=== PATIENT | male | born 1955 | race Caucasian/White ===

== ENCOUNTER → 2017-06-24 | Outpatient (CLI) | payer OTHER, MEDICARE ==
[~2017-06-24] MED LIST: ALBUTEROL17 GM IH; ASPIR 8181 MG PO; B-COMPLEX PO; BOWEL PREP; DIAZIDE PO; ENBREL SQ; FIBER SUPPLEMENT PO; FISH OIL PO; GLUCOSAMINE CH1 EAC2 PO; HYDROCODONE-AP1 EAC1 PO; LISINOPRIL10 MG PO; LYRICA150 MG PO; METFORMIN HCL500 MG PO; METOLAZONE5 MG PO; MIDODRINE HCL2.5 MG PO; MILK THISTLE PO; MOMETASONE FURO15 GM; MORPHINE SULFAT30 M1 PO; NUCYNTA100 MG PO; PLAQUENIL200 MG PO; PRESTIQ PO; PRISTIQ ER50 MG PO; SIMPONI SQ; TIZANIDINE HCL4 MG PO; TRIAMTERENE-HCTZ1 EA PO; VITAMIN D1000 UNI1 PO; XANAX1 MG PO; Z NEURONTIN PO; Z.0.ALDACTONE50 MG PO; Z.0.CLONAZEPAM1 MG PO; Z.0.CYMBALTA60 MG PO; Z.0.LEVOTHYROXINE75 PO; Z.0.MULTIVITAMINS1 E PO; Z.0.OMEPRAZOLE40 MG PO; Z.0.TAMSULOSIN HCL0. PO; Z.0.VITAMIN C500 M1 PO; Z.2.METFORMIN HCL500 PO; [UNRECOGNIZED DRUG - OTHER] IM; [UNRECOGNIZED DRUG - OTHER] INJ; vitamin b12 PO
--- NOTE | 2017-06-24 18:54 | Diagnostic Imaging Report ---
PROCEDURE:C-SPINE COMP. W/FLEX \T\ EXT COMPARISON:None. INDICATIONS:NECK PAIN FINDINGS:The cervical spine is visualized on the lateral view from skull base to C7-T1. No acute, displaced fracture or dislocation. Degenerative changes predominantly at C5-C6 with presence of bridging osteophytes and intervertebral disc space narrowing. Small bridging osteophytes are also noted at C4-C5 and C6-C7. Minimal grade 1 anterolisthesis of C6 on C5, which shows no significant change in flexion and extension views. Minimal grade 1 anterolisthesis of C6 on C7, seen only on flexion view. No lytic or blastic lesions. Bilateral oblique views show no significant neural foraminal narrowing. Postoperative changes with metallic clips in the right neck region, likely from prior endarterectomy. CONCLUSION:No acute abnormalities. Degenerative changes predominantly at C5-C6. Minimal grade 1 anterolisthesis of C6 on C5, which shows no change on flexion and extension views. Minimal grade 1 anterolisthesis of C6 on C7, seen only on flexion view. Arsenio Lindsey M.D. Dictated by: Arsenio Lindsey M.D. on 06/24/2017 at 19:02 Electronically approved by: Arsenio Lindsey M.D. on 06/24/2017 at 19:02
== END ==
LOC: RAD 09:07
PROVIDERS: ATTEND Internal Medicine Rheumatology
DX: M54.2 Cervicalgia (principal)
CPT/HCPCS: 72052

== ENCOUNTER → 2017-07-13 | Outpatient (CLI) | payer OTHER, MEDICARE ==
--- NOTE | 2017-07-13 10:25 | Diagnostic Imaging Report ---
Exam: Cervical spine MRI without IV contrast History: Left arm and hand numbness Comparison studies: None Technique: Sagittal and axial T2, sagittal and axial T1, sagittal STIR and axial T2*GRE Intravenous contrast: None Findings: Alignment: Normal lordosis. No scoliosis. Cervicomedullary junction: No abnormalities. Patent foramen magnum. Soft tissues: No T2 hyperintense inflammatory changes. Spinal cord: Normal in size and signal from the foramen magnum through T1. Vertebrae: No fractures, infection or neoplasm. Degenerative changes: C2-C3: Patent canal and foramina. No disc herniation. Moderate left facet arthrosis. C3-C4: Small central disc protrusion indents the sac without canal stenosis. Uncovertebral and bilateral facet arthrosis result in mild left foraminal stenosis. No significant right foraminal stenosis. C4-C5: Mildly degenerated disc. Disc osteophyte complex indents the thecal sac without significant canal stenosis. Severe left foraminal stenosis due to moderate left uncovertebral and facet arthrosis with likely compression of the left C5 nerve root. Mild right foraminal stenosis due to uncovertebral facet arthrosis. C5-C6: Moderately degenerated disc. Disc osteophyte complex and thickened ligamentum flavum indent the thecal sac and result in mild canal stenosis. Moderate bilateral foraminal stenosis due to uncovertebral facet arthrosis.. C6-C7: Mildly degenerated disc. Disc osteophyte complex indents the thecal sac but does not result in canal stenosis. Mild to moderate foraminal stenosis due to uncovertebral facet arthrosis. C7-T1: Mildly degenerated disc. Disc osteophyte complex indents the thecal sac without significant canal stenosis. Mild left foraminal stenosis due due to facet arthrosis. Patent canal and right foramen. T1-T2: Disc bulge indents the thecal sac without canal or foraminal stenosis. Incidental findings: Small or absent right thyroid lobe. Findings could be related for previous right hemithyroidectomy. IMPRESSION: 1. Multilevel degenerative foraminal stenosis with severe foraminal stenosis on the left at C4-C5 with compression of the left C5 nerve root. Moderate foraminal stenosis on the right at C4-C5 and bilaterally at C5-C6. 2. Moderately degenerated disc with mild canal stenosis at C5-C6. 3. Additional multilevel degenerative changes as described. Signed by: Dr. Eusebio Melo M.D. on 07/13/2017 10:22 AM
== END ==
LOC: MRI 08:43
PROVIDERS: ATTEND Internal Medicine Rheumatology
DX: M50.30 Other cervical disc degeneration, unspecified cervical region (principal); M54.2 Cervicalgia; M05.79 Rheumatoid arthritis with rheumatoid factor of multiple sites without organ or systems involvement
CPT/HCPCS: 72141

== ENCOUNTER → 2017-09-21 | Outpatient (CLI) | payer OTHER, MEDICARE ==
[~2017-09-21] MED LIST changes: +AMBIEN CR12.5 MG PO; +ATIVAN1 MG PO; +BENEFIBER1 EAC1 PO; +CARAFATE1 GM/10 ML PO; +DIATRIZOATE MEGL/DIATRIZOA SOD 30 ML BTL PO ONE; +FLOMAX0.4 MG PO; +GABAPENTIN600 MG PO; +GLUCOSAMINE PO; +IOPAMIDOL 370 MG/ML 200 ML INFUS..BTL INJ ONE; +LEVOTHYROXINE137 MCG PO; +LINZESS PO; +NAPROXEN375 MG PO; +OMEPRAZOLE-BIC1 EAC1 PO; +PREDNISONE10 MG PO; +SODIUM CHLORIDE 0.9% 50ML 50 ML ONE; +VITAMIN B COMP1 EAC1 PO; +XELJANZ PO; +ZOFRAN ODT4 MG PO
--- NOTE | 2017-09-21 12:45 | Diagnostic Imaging Report ---
PROCEDURE: CT ABDOMEN AND PELVIS WITH CONTRAST TECHNIQUE: The abdomen and pelvis were scanned utilizing a multidetector helical scanner from the diaphragm to the lesser trochanter after the IV administration of 100 cc of Isovue 370 and the oral administration of Gastroview. Coronal and sagittal multiplanar reformations were obtained. DLP: 607.4 mGy-cm COMPARISON: Abdominal CT 04/28/2012, abdominal MRI 05/10/2012 INDICATIONS: ABDOMEN PAIN FINDINGS: LOWER THORAX: Normal. HEPATOBILIARY: Nodular contour. No focal hepatic lesions within the limitations of single phase scan. No biliary ductal dilatation. Multiple calcified gallstones. SPLEEN: Slightly enlarged measuring 13 cm in length. PANCREAS: No focal masses or ductal dilatation. ADRENALS: No adrenal nodules. KIDNEYS/URETERS: No hydronephrosis, stones, or definite solid mass lesions. Increased size of a right renal low attenuating lesion from 1.7 cm to 2.5 cm. Lesion currently measures slightly higher than simple fluid density at 24 HU. A 0.6 cm hypodensity in the superior-medial left renal pole is too small to characterize but statistically likely a cyst. PELVIC ORGANS/BLADDER: Unremarkable. PERITONEUM / RETROPERITONEUM: No free air or fluid. LYMPH NODES: No lymphadenopathy. VESSELS: Main portal vein is enlarged measuring 1.9 cm in diameter. Portal, splenic, and superior mesenteric veins are patent. Recanalized umbilical vein. Diffuse vascular calcifications with stenoses of the left external iliac artery and proximal left superficial femoral artery. GI TRACT: No distention or wall thickening. Descending and sigmoid colonic diverticula without evidence of diverticulitis. BONES AND SOFT TISSUES: No vessels seen in the right inguinal canal which may suggest orchiectomy. Degenerative changes of the spine, worse at L5-S1. IMPRESSION: 1. No acute abnormalities in the abdomen and pelvis. 2. Cirrhosis with portal hypertension evidenced by splenomegaly, enlarged portal vein, and recanalized umbilical vein. No ascites. 3. Increased size of a low attenuation lesion in the right kidney which currently measures slightly greater than simple fluid density and may suggest a hemorrhagic or proteinaceous cyst. This can be confirmed with renal ultrasound. Dictated by: Adán Fair M.D. on 09/21/2017 at 12:46 Electronically approved by: Adán Fair M.D. on 09/21/2017 at 12:46
== END ==
LOC: CT 09:31
PROVIDERS: ATTEND Internal Medicine Gastroenterology
DX: R10.9 Unspecified abdominal pain (principal)
CPT/HCPCS: 74177; Q9967

== ENCOUNTER → 2017-10-03 | Day surgery (SDC) | payer OTHER, MEDICARE ==
[~2017-10-03] MED LIST changes: -DIATRIZOATE MEGL/DIATRIZOA SOD 30 ML BTL PO ONE; -IOPAMIDOL 370 MG/ML 200 ML INFUS..BTL INJ ONE; +LIDOCAINE HCL 2% LOCAL INJ 5 ML SDV VIAL INJ ONE; +MIDAZOLAM HCL 2 MG/2 ML VIAL ONE; +PROPOFOL IV EMULSION 10 MG/ML 50 ML VIAL ONE; -SODIUM CHLORIDE 0.9% 50ML 50 ML ONE
--- OUTSIDE RECORDS SUMMARY | 2017-10-03 07:37 | XMS REPORT ---
Author Author [facility] Address Unknown Phone Unavailable Care Team Providers Care Elevator Erector Name Role Phone YENI SALGADO Unavailable Unavailable SIMRAN WILDER Unavailable Unavailable Problems This patient has no known problems. Allergies, Adverse Reactions, Alerts This patient has no known allergies or adverse reactions. Medications This patient has no known medications. Results Test Description Test Time Test Comments Text Results Atomic Results Result Comments CT ABDOMEN/PELVIS W [place] [address] Patient Name: NASIMA SCHAFFER MR #: [id number] : 1955 Age/Sex: 62/M Req #: [id number] Adm Physician: Ordered by: YENI SALGADO MD Report #: [id number] Location: CT Room/Bed: Procedure: [id number] CT/CT ABDOMEN/PELVIS W Exam Date: 09/21/17 Exam Time: 1100 REPORT STATUS: Signed PROCEDURE: CT ABDOMEN AND PELVIS WITH CONTRAST TECHNIQUE: The abdomen and pelvis were scanned utilizing a multidetector helical scanner from the diaphragm to the lesser trochanter after the IV administration of 100 cc of Isovue 370 and the oral administration of Gastroview. Coronal and sagittal multiplanar reformations were obtained. DLP: 607.4 mGy-cm COMPARISON: Abdominal CT 04/28/2012, abdominal MRI 05/10/2012 INDICATIONS: ABDOMEN PAIN FINDINGS: LOWER THORAX: Normal. HEPATOBILIARY: Nodular contour. No focal hepatic lesions within the limitations of single phase scan. No biliary ductal dilatation. Multiple calcified gallstones. SPLEEN: Slightly enlarged measuring 13 cm in length. PANCREAS: No focal masses or ductal dilatation. ADRENALS: No adrenal nodules. KIDNEYS/URETERS: No hydronephrosis, stones, or definite solid mass lesions. Increased size of a right renal low attenuating lesion from 1.7 cm to 2.5 cm. Lesion currently measures slightly higher than simple fluid density at 24 HU. A 0.6 cm hypodensity in the superior-medial left renal pole is too small to characterize but statistically likely a cyst. PELVIC ORGANS/BLADDER: Unremarkable. PERITONEUM / RETROPERITONEUM: No free air or fluid. LYMPH NODES: No lymphadenopathy. VESSELS: Main portal vein is enlarged measuring 1.9 cm in diameter. Portal, splenic, and superior mesenteric veins are patent. Recanalized umbilical vein. Diffuse vascular calcifications with stenoses of the left external iliac artery and proximal left superficial femoral artery. GI TRACT: No distention or wall thickening. Descending and sigmoid colonic diverticula without evidence of diverticulitis. BONES AND SOFT TISSUES: No vessels seen in the right inguinal canal which may suggest orchiectomy. Degenerative changes of the spine, worse at L5-S1. IMPRESSION: 1. No acute abnormalities in the abdomen and pelvis. 2. Cirrhosis with portal hypertension evidenced by splenomegaly, enlarged portal vein, and recanalized umbilical vein. No ascites. 3. Increased size of a low attenuation lesion in the right kidney which currently measures slightly greater than simple fluid density and may suggest a hemorrhagic or proteinaceous cyst. This can be confirmed with renal ultrasound. Dictated by: Adán Aguirre M.D. on 09/21/2017 at 12:46 Electronically approved by: Adán Aguirre M.D. on 09/21/2017 at 12:46 Dictated By: ADÁN AGUIRRE MD 1246 Transcribed By: GERRY on 09/21/17 1246 COPY TO: YENI SALGADO MD MRI SPINE CERVICAL WO [place] [address] Patient Name: NASIMA SCHAFFER MR #: [id number] : 1955 Age/Sex: 62/M [facility] #: [id number] Req #: [id number] [facility] [place] Physician: Ordered by: SIMRAN WILDER Report #: [id number] Location: MRI Room/Bed: Procedure: [id number] MRI/MRI SPINE CERVICAL WO Exam Date: Exam Time: REPORT STATUS: Signed Exam: Cervical spine MRI without IV contrast History: Left arm and hand numbness Comparison studies: None Technique: Sagittal and axial T2, sagittal and axial T1, sagittal STIR and axial T2*GRE Intravenous contrast: None Findings: Alignment: Normal lordosis. No scoliosis. Cervicomedullary junction: No abnormalities. Patent foramen magnum. Soft tissues: No T2 hyperintense inflammatory changes. Spinal cord: Normal in size and signal from the foramen magnum through T1. Vertebrae: No fractures, infection or neoplasm. Degenerative changes: C2-C3: Patent canal and foramina. No disc herniation. Moderate left facet arthrosis. C3-C4: Small central disc protrusion indents the sac without canal stenosis. Uncovertebral and bilateral facet arthrosis result in mild left foraminal stenosis. No significant right foraminal stenosis. C4-C5: Mildly degenerated disc. Disc osteophyte complex indents the thecal sac without significant canal stenosis. Severe left foraminal stenosis due to moderate left uncovertebral and facet arthrosis with likely compression of the left C5 nerve root. Mild right foraminal stenosis due to uncovertebral facet arthrosis. C5-C6: Moderately degenerated disc. Disc osteophyte complex and thickened ligamentum flavum indent the thecal sac and result in mild canal stenosis. Moderate bilateral foraminal stenosis due to uncovertebral facet arthrosis.. C6-C7: Mildly degenerated disc. Disc osteophyte complex indents the thecal sac but does not result in canal stenosis. Mild to moderate foraminal stenosis due to uncovertebral facet arthrosis. C7-T1: Mildly degenerated disc. Disc osteophyte complex indents the thecal sac without significant canal stenosis. Mild left foraminal stenosis due due to facet arthrosis. Patent canal and right foramen. T1-T2: Disc bulge indents the thecal sac without canal or foraminal stenosis. Incidental findings: Small or absent right thyroid lobe. Findings could be related for previous right hemithyroidectomy. IMPRESSION: 1. Multilevel degenerative foraminal stenosis with severe foraminal stenosis on the left at C4-C5 with compression of the left C5 nerve root. Moderate foraminal stenosis on the right at C4-C5 and bilaterally at C5- C6. 2. Moderately degenerated disc with mild canal stenosis at C5-C6. 3. Additional multilevel degenerative changes as described. Signed by: Dr. Reji Melo M.D. on 07/13/2017 10:22 AM Dictated By: REJI MELO MD 1022 Transcribed By: ALLYSON on 07/13/17 1022 COPY TO: SIMRAN WILDER C-SPINE COMP. W/FLEX EXT [place] [address] Patient Name: NASIMA SCHAFFER MR #: [id number] : 1955 Age/Sex: 62/M Req #: [id number] Adm Physician: Ordered by: SIMRAN WILDER Report #: [id number] Location: [facility] Room/Bed: Procedure: [id number] DX/C-SPINE COMP. W/FLEX EXT Exam Date: 06/24/17 Exam Time: 926 REPORT STATUS: Signed PROCEDURE: C-SPINE COMP. W/FLEX T EXT COMPARISON: None. INDICATIONS: NECK PAIN FINDINGS: The cervical spine is visualized on the lateral view from skull base to C7-T1. No acute, displaced fracture or dislocation. Degenerative changes predominantly at C5-C6 with presence of bridging osteophytes and intervertebral disc space narrowing. Small bridging osteophytes are also noted at C4-C5 and C6-C7. Minimal grade 1 anterolisthesis of C6 on C5, which shows no significant change in flexion and extension views. Minimal grade 1 anterolisthesis of C6 on C7, seen only on flexion view. No lytic or blastic lesions. Bilateral oblique views show no significant neural foraminal narrowing. Postoperative changes with metallic clips in the right neck region, likely from prior endarterectomy. CONCLUSION: No acute abnormalities. Degenerative changes predominantly at C5-C6. Minimal grade 1 anterolisthesis of C6 on C5, which shows no change on flexion and extension views. Minimal grade 1 anterolisthesis of C6 on C7 , seen only on flexion view. Radames Lindsey M.D. Dictated by: Radames Lindsey M.D. on 06/24/2017 at 19:02 Electronically approved by: Radames Lindsey M.D. on 06/24/2017 at 19:02 Dictated By: RADAMES LINDSEY MD 01 Transcribed By: GERRY on 06/24/171901 COPY TO: SIMRAN WILDER
--- NOTE | 2017-10-03 09:54 | Operative Report ---
DATE OF PROCEDURE: October 03, 2017 REFERRING PHYSICIAN: Dr. Christel Mills PROCEDURES PERFORMED 1. Esophagogastroduodenoscopy with biopsies. 2. Colonoscopy with polypectomy. INDICATIONS FOR EGD: Nausea, vomiting, history of melena. INDICATIONS FOR COLONOSCOPY: Colorectal cancer screening, personal history of colon polyps. MEDICATION: Patient was done under MAC. Please see anesthesiologist's note. PROCEDURE: With the patient in the left lateral decubitus position, the flexible fiberoptic Olympus gastroscope was introduced into the esophagus under direct visualization without any difficulty. There was some patchy erythema noted in the distal esophagus. The scope was then advanced with ease into the stomach, and mucosa overlying the antrum revealed some patchy intense erythema and moderate edema, and biopsies were obtained and sent to stain for H. pylori. There was some extrinsic compression noted in the distal body along the anterior wall with normal overlying mucosa. The pylorus was of normal contour and shape. It was intubated with ease. The scope was advanced all the way to the 2nd portion of the duodenum. The scope was then withdrawn slowly. Mucosa overlying the proximal 2nd portion appeared to be within normal limits. A minute nodule was noted in the duodenal bulb along the anterior wall and that was biopsied. The scope was then withdrawn back into the stomach and retroflexed. The mucosa overlying the fundus and the cardia appeared to be within normal limits. The scope was then straightened out. The stomach was decompressed. The scope was subsequently withdrawn. Patient tolerated the procedure well. IMPRESSION 1. Distal esophagitis. 2. Gastritis, biopsied. Biopsies sent to stain for Helicobacter pylori. 3. Duodenal bulb nodule, minute, anterior wall, biopsied. PLAN: Follow up histology. Initiate Protonix 40 mg 1 p.o. q.a.m. a.c. Patient was then turned around. After adequate lubrication of the anal canal, a flexible fiberoptic Olympus colonoscope was inserted into the rectum with ease and advanced all the way to the cecum. There was some retained solid debris in the cecum precluding adequate visualization of the cecal pouch. An approximately 1 cm sessile polyp was noted in the cecum that was removed per snare electrocautery. Polypectomy site was hemoclipped. The scope was then withdrawn slowly. Mucosa overlying the ascending colon appeared to be within normal limits. One polyp was snared from the transverse colon. Diverticular disease was noted to involve the descending and the sigmoid. One polyp was noted in the sigmoid that was hot biopsied. The rectum appeared to be within normal limits. The scope was then retroflexed into the distal rectum. Small internal hemorrhoids were noted, none of which was actively bleeding. The scope was then straightened out. The rectosigmoid area, as well as the distal rectal area were decompressed. The scope was subsequently withdrawn. Patient tolerated the procedure well. IMPRESSION 1. Retained solid debris in the cecum. 2. Cecal polyps, snared. 3. Transverse colon polyps, snared. 4. Diverticulosis. 5. Sigmoid colon polyp, hot biopsied. 6. Internal hemorrhoids, none actively bleeding. PLAN: Follow up histology. Initiate high-fiber and low-fat diet. Initiate high-fiber supplement. Start VSL #3 DS one p.o. daily. The patient will need a followup colonoscopy in 3 years. Job#: [id number] RI cc:CHRISTEL MILLS MD
== END | disposition home or self-care (01) ==
LOC: OR 07:34
PROVIDERS: ATTEND Internal Medicine Gastroenterology
DX: Z12.11 Encounter for screening for malignant neoplasm of colon (principal); D12.0 Benign neoplasm of cecum; K29.70 Gastritis, unspecified, without bleeding; K31.89 Other diseases of stomach and duodenum; K57.30 Diverticulosis of large intestine without perforation or abscess without bleeding; K63.89 Other specified diseases of intestine; K20.9 Esophagitis, unspecified; K64.8 Other hemorrhoids; K59.00 Constipation, unspecified; K74.60 Unspecified cirrhosis of liver; R63.4 Abnormal weight loss; I45.10 Unspecified right bundle-branch block; M06.9 Rheumatoid arthritis, unspecified; M54.10 Radiculopathy, site unspecified; E03.9 Hypothyroidism, unspecified; E11.9 Type 2 diabetes mellitus without complications; R53.83 Other fatigue; Z01.810 Encounter for preprocedural cardiovascular examination; Z79.82 Long term (current) use of aspirin; Z83.71 Family history of colonic polyps
CPT/HCPCS: 36415; 43239; 45384; 45385; 82948; 93005; J2001; J2250; 45378

== ENCOUNTER → 2018-01-30 | Outpatient (CLI) | payer OTHER, MEDICARE ==
[~2018-01-30] MED LIST changes: -LIDOCAINE HCL 2% LOCAL INJ 5 ML SDV VIAL INJ ONE; -MIDAZOLAM HCL 2 MG/2 ML VIAL ONE; -PROPOFOL IV EMULSION 10 MG/ML 50 ML VIAL ONE
--- NOTE | 2018-01-30 10:31 | Diagnostic Imaging Report ---
EXAMINATION: Head CT without contrast HISTORY: Left-sided weakness COMPARISON: Brain MRI 01/28/2012 TECHNIQUE: Multidetector axial images were obtained without contrast from the foramen magnum to the vertex . The images were reconstructed using brain and bone algorithms. Thin section brain images were reformatted into coronal and sagittal planes. Image quality: Motion/streaking artifact limits the evaluation of the skull base and posterior cranial fossa. Dose modulation, iterative reconstruction, and/or weight based adjustment of the mA/kV was utilized to reduce the radiation dose to as low as reasonably achievable FINDINGS: Parenchyma: 1. Few scattered a mildly confluent periventricular and parisi radiata white matter hypodensities, most likely nonspecific chronic microvascular ischemic changes. 2. No mass or hemorrhage. No CT evidence of acute territorial vascular insult. Extra-axial spaces:No abnormal density. No extra-axial fluid collections Brain volume: Normal for age. Ventricles: No hydrocephalus or displacement. Arteries: No density suggestive of thrombus. Dural sinuses: No abnormal density. Extra-axial spaces: No abnormal density. Foramen magnum: No mass, Chiari malformation, or basilar invagination. Sella: No obvious mass. Paranasal/mastoid sinuses: Imaged portions unremarkable. Skull/Scalp: No lytic or blastic lesions. No fractures. IMPRESSION: 1. No acute intracranial hemorrhage or CT evidence of acute territorial cortical infarct. 2. Mild chronic microvascular ischemic changes. Signed by: Dr. Alisha Castañeda M.D. on 01/30/2018 10:27 AM
== END ==
LOC: CT 08:36
DX: R53.1 Weakness (principal)
CPT/HCPCS: 70450

== ENCOUNTER → 2018-03-07 | Day surgery (SDC) | payer OTHER, MEDICARE ==
[~2018-03-07] MED LIST changes: +PROPOFOL IV EMULSION 10 MG/ML 20 ML VIAL ONE; +ZANTAC 7575 MG PO
[2018-03-07 15:22] VITALS: BP 138/79
== END | disposition home or self-care (01) ==
LOC: OR 12:09
PROVIDERS: ATTEND Internal Medicine Gastroenterology
DX: K74.60 Unspecified cirrhosis of liver (principal); K29.70 Gastritis, unspecified, without bleeding; K44.9 Diaphragmatic hernia without obstruction or gangrene; K76.6 Portal hypertension; K21.9 Gastro-esophageal reflux disease without esophagitis; K31.89 Other diseases of stomach and duodenum; K59.00 Constipation, unspecified; K58.9 Irritable bowel syndrome, unspecified; Z71.3 Dietary counseling and surveillance; E66.3 Overweight; I25.10 Atherosclerotic heart disease of native coronary artery without angina pectoris; I45.10 Unspecified right bundle-branch block; I10 Essential (primary) hypertension; F41.9 Anxiety disorder, unspecified; Z79.82 Long term (current) use of aspirin; Z68.26 Body mass index [BMI] 26.0-26.9, adult; Z87.891 Personal history of nicotine dependence; Z86.73 Personal history of transient ischemic attack (TIA), and cerebral infarction without residual deficits
CPT/HCPCS: 43239; 93005

== ENCOUNTER 2018-11-07 13:23 | Emergency (ER) | payer MEDICARE, OTHER ==
[~2018-11-07] VITALS: Ht 185.4 cm; Wt 102.1 kg
[~2018-11-07 13:23] MED LIST changes: -PROPOFOL IV EMULSION 10 MG/ML 20 ML VIAL ONE
--- OUTSIDE RECORDS SUMMARY | 2018-11-07 13:28 | XMS REPORT | Clinical Summary ---
Author Author [facility] [employer] [facility] Address Unknown Phone Unavailable Care Team Providers Care Professional Athletes Coach Name Role Phone PCP Unavailable Allergies Comments Active Allergy Reactions Severity Noted Date Dizziness. Adalimumab Other (See 01/18/2018 Comments) Medications End Date Status Medication Sig Dispensed Refills Start Date Active aspirin 81 MG EC tablet Take 81 mg by 0 mouth daily. Active LORazepam (ATIVAN) 1 MG Take 1 mg by 0 tablet mouth as needed for Anxiety. Active wheat dextrin (BENEFIBER Take 1 tablet 0 HEALTHY SHAPE ORAL) by mouth daily. Active levothyroxine (SYNTHROID, Take 137 mcg 0 LEVOTHROID) 137 MCG by mouth tablet Every morning on an empty stomach. Active morphine (MS CONTIN) 30 Take 30 mg by 0 MG 12 hr tablet mouth 2 (two) times daily. Active naproxen (NAPROSYN) 375 Take 375 mg 0 MG tablet by mouth 2 (two) times daily with breakfast and dinner. Active hydroxychloroquine Take by mouth 0 (PLAQUENIL) 200 mg tablet 2 (two) times daily. Active predniSONE (DELTASONE) 10 Take 20 mg by 0 MG tablet mouth daily. Active desvenlafaxine succinate Take 50 mg by 0 (PRISTIQ) 50 MG 24 hr mouth daily. tablet Active tamsulosin (FLOMAX) 0.4 Take 0.4 mg 0 mg Cap 24 hr capsule by mouth daily. Active TiZANidine (ZANAFLEX) 4 Take 4 mg by 0 MG capsule mouth 3 (three) times daily. Active zolpidem (AMBIEN CR) 12.5 Take 12.5 mg 0 MG CR tablet by mouth every night as needed for Insomnia. Active clopidogrel (PLAVIX) 75 Take 75 mg by 0 mg tablet mouth daily. Active ranitidine (ZANTAC) 150 Take 150 mg 0 MG tablet by mouth 2 (two) times daily. Active tofacitinib (XELJANZ XR) Take 11 mg by 0 11 mg Tb24 mouth daily. Active linaclotide (LINZESS) 72 Take 72 mcg 0 mcg Cap by mouth daily. Active acetaminophen (TYLENOL) Take 2 0 325 MG tablet tablets (650 8 mg total) by mouth every 6 (six) hours as needed for Pain. Active Problems Problem Noted Date Carotid artery disorder 01/20/2018 Encounters Care Team Description Date Type Specialty Daxa Hawkins MD CAROTID ANGIOGRAMS 01/20/2018 Surgery Daxa Hawkins MD 01/20/2018 Hospital Cardiac Intensive Care - Encounter 01/21/2018 Daxa Hawkins MD 01/18/2018 Hospital Encounter 01/18/2018 Orders Only General Internal Medicine after 11/06/2017 Social History Date Tobacco Use Types Packs/Day Years Used Former Smoker Smokeless Tobacco: Never Used Comments: quit in 2004. Alcohol Use Drinks/Week oz/Week Comments No Sex Assigned at Date Recorded Not on file Industry Job Start Date Occupation Not on file Not on file Not on file Travel End Travel History Travel Start No recent travel history available. Last Filed Vital Signs Time Taken Vital Sign Reading 01/21/2018 11:58 AM CDT Blood Pressure 136/73 01/21/2018 11:58 AM CDT Pulse 66 01/21/2018 8:00 AM CDT Temperature 36.5 C (97.7 F) 01/21/2018 11:58 AM CDT Respiratory Rate 18 01/21/2018 11:58 AM CDT Oxygen Saturation 100% - Inhaled Oxygen - Concentration 01/20/2018 11:11 AM CDT Weight 88 kg (194 lb) 01/20/2018 11:11 AM CDT Height 185.4 cm (6' 1") 01/20/2018 11:11 AM CDT Body Mass Index 25.6 Plan of Treatment Not on file Implants Device Identifier Shelf Expiration Date Model / Serial / Lot Implanted Type Area Manufactur er 08/10/2020 [id number] / / [id number] Xact Carotid Stent System Cardiovasc Right: Carotid PITTMAN Implanted: Qty: 1 on 01/20/2018 by pramod Benoit VASCULAR Daxa Hawkins MD DEVICE 09/10/2018 [id number] / / [id number] Device Clsr Angio-Seal Vip 6fr Cardiovasc Right: Leg [facility] GI[facility] [id number] - [id number] pramod MED:CARDIA Implanted: Qty: 1 on 01/20/2018 by Daxa Rowell MD Procedures Comments Procedure Name Priority Date/Time Associated Diagnosis CARDIAC CATH REPORT - 01/24/2018 SCAN 9:11 AM CDT RHYTHM STRIP - SCAN 01/24/2018 9:11 AM CDT CBC W/PLT COUNT & AUTO Routine 01/21/2018 DIFFERENTIAL 3:55 AM CDT BASIC METABOLIC PANEL (7) Routine 01/21/2018 3:55 AM CDT CBC W/PLT COUNT & AUTO Routine 01/21/2018 DIFFERENTIAL 3:55 AM CDT POCT-ACT Routine 01/20/2018 8:30 AM CDT CAROTID ANGIOGRAMS 01/20/2018 Stenosis of right carotid 7:35 AM CDT artery Case Notes 1CASE POP6 RIGHT CAROTID ANGIOGRAM W/CAROTID STENTING Special Needs REQ 7:30AM TRANSFUSION SERVICE 01/19/2018 REPORT - SCAN 6:01 PM CDT CBC W/PLT COUNT & AUTO Routine 01/18/2018 DIFFERENTIAL 1:39 PM CDT TYPE AND SCREEN, Routine 01/18/2018 AUTOMATED 1:39 PM CDT CBC W/PLT COUNT & AUTO Routine 01/18/2018 DIFFERENTIAL 1:39 PM CDT BASIC METABOLIC PANEL (7) Routine 01/18/2018 1:39 PM CDT ECG 12-LEAD Routine 01/18/2018 1:15 PM CDT ECG 12-LEAD Routine 01/18/2018 1:15 PM CDT Procedure Note - Interface, External Ris In - 01/18/2018 2:06 PM CDT Ventricula r Rate 79 BPM Atrial Rate 79 BPM P-R Interval 160 ms QRS Duration 132 ms Q-T Interval 396 ms QTC Calculatio n(Bazett) 454 ms P [place] 65 degrees R [place] -76 degrees T [place] 55 degrees Normal sinus rhythm Right bundle branch block Left anterior fascicular block Bifascicul ar block Abnormal ECG No previous ECGs available after 11/06/2017 Results * CARDIAC CATH REPORT - SCAN (01/24/2018 9:11 AM CDT) Narrative Performed At * RHYTHM STRIP - SCAN (01/24/2018 9:11 AM CDT) Narrative Performed At * CBC with platelet count + automated diff (01/21/2018 3:55 AM CDT) Only the most recent of 2 results within the time period is included. WBC 7.2 3.5 - 10.5 K/L [facility] RBC 3.66 (L) 4.63 - 6.08 M/L [facility] Hemoglobin 11.9 (L) 13.7 - 17.5 GM/DL [facility] Hematocrit 35.5 (L) 40.1 - 51.0 % [facility] MCV 97.0 (H) 79.0 - 92.2 fL [facility] MCH 32.5 (H) 25.7 - 32.2 pg [facility] MCHC 33.5 32.3 - 36.5 GM/DL [facility] RDW 14.5 (H) 11.6 - 14.4 % [facility] Platelets 155 150 - 450 K/CU MM [facility] MPV 9.2 (L) 9.4 - 12.4 fL [facility] nRBC 0 0 - 0 /100 WBC [facility] % Neutros 67 % [facility] % Lymphs 20 % [facility] % Monos 10 % [facility] % Eos 1 % [facility] % Baso 1 % [facility] # Neutros 4.86 1.78 - 5.38 K/L [facility] # Lymphs 1.40 1.32 - 3.57 K/L [facility] # Monos 0.73 0.30 - 0.82 K/L [facility] # Eos 0.07 0.04 - 0.54 K/L [facility] # Baso 0.04 0.01 - 0.08 K/L [facility] Immature 1 0 - 1 % [facility] Granulocytes-Relative [facility] Specimen Blood Performing Organization Address City/State/Zipcode Phone Number [address] [address] [facility] * Basic Metabolic Panel (01/21/2018 3:55 AM CDT) Only the most recent of 2 results within the time period is included. Sodium 140 136 - 145 meq/L [facility] Potassium 4.0 3.5 - 5.1 meq/L [facility] Chloride 106 98 - 107 meq/L [facility] CO2 26 22 - 29 meq/L [facility] BUN 19 7 - 21 mg/dL [facility] Creatinine 0.95 0.57 - 1.25 mg/dL [facility] Glucose 93 70 - 105 mg/dL [facility] Calcium 9.0 8.4 - 10.2 mg/dL [facility] EGFR 80Comment: ESTIMATED GFR IS mL/min/1.73 sq m [facility] NOT ACCURATE CREATININE [facility] CLEARANCE IN PREDICTING GLOMERULAR FILTRATION RATE. ESTIMATED GFR IS NOT APPLICABLE FOR DIALYSIS PATIENTS. Specimen Blood Performing Organization Address City/State/Zipcode Phone Number [address] [address] [facility] * POC ACTIVATED CLOTTING TIME (01/20/2018 8:30 AM CDT) Activated Clotting Time 274Comment: TESTED AT [facility] [address] Specimen Blood Performing Organization Address City/[facility]/Zipcode Phone Number [address] * TRANSFUSION SERVICE REPORT - SCAN (01/19/2018 6:01 PM CDT) Narrative Performed At * Type and screen, automated (01/18/2018 1:39 PM CDT) ABO/RH AUTOMATED (BEAKER) O POSITIVE [facility] Ab Scrn NEGATIVE [facility] Specimen Blood Performing Organization Address [facility] Phone Number [address] * ECG 12 lead (01/18/2018 1:15 PM CDT) Specimen Narrative Performed At Ventricular Rate 79 BPM GE MUSE Atrial Rate 79 BPM P-R Interval 160 ms QRS Duration 132 ms Q-T Interval 396 ms QTC Calculation(Bazett) 454 ms P [place] 65 degrees R [place] -76 degrees T [place] 55 degrees Normal sinus rhythm Right bundle branch block Left anterior fascicular block Bifascicular block Abnormal ECG No previous ECGs available Confirmed by Rancho HAYNES, LESTER ([id number]) on 01/19/2018 6:51:25 AM Procedure Note Interface, External Ris In - 01/19/2018 6:51 AM CDT Ventricular Rate 79 BPM Atrial Rate 79 BPM P-R Interval 160 ms QRS Duration 132 ms Q-T Interval 396 ms QTC Calculation(Bazett) 454 ms P [place] 65 degrees R [place] -76 degrees T [place] 55 degrees Normal sinus rhythm Right bundle branch block Left anterior fascicular block Bifascicular block Abnormal ECG No previous ECGs available Confirmed by Rancho HAYNES BASANT ([id number]) on 01/19/2018 6:51:25 AM Performing Organization Address City/State/Zipcode Phone Number GE MUSE after 11/06/2017 Insurance Payer Benefit Subscriber ID Type Phone Address Plan / Group MEDICARE MEDICARE A xxxxxxxxxx Medicare B [facility] HMO/POS CARE POS SELECT CHOICE Advance Directives For more information, please contact: [facility] [address] [place] [id number] Date Inactivated Comments Code Status Date Activated 01/21/2018 2:54 PM Full Code 01/20/2018 5:52 AM This code status was determined by: Patient
--- OUTSIDE RECORDS SUMMARY | 2018-11-07 13:29 | XMS REPORT | Summary of Care ---
Author Author [facility] Organization [facility] Address Unknown Phone Unavailable Encounter SANTIAGO Limon(FIN) [id number] Date(s): 10/28/18 - 10/28/18 [facility] [address] [place] [address]- Discharge Disposition: Home or Self Care Attending Physician: Robin Calderon MD Referring Physician: Robin Calderon MD Vital Signs No data available for this section Problem List Condition Effective Dates Status Health Status Informant Anxiety(Confirmed) Active History of Oral Resolved Cancer(Confirmed) Chronic pain Active syndrome(Confirmed) Cirrhosis of Active liver(Confirmed) ONEIDA (hard of Active hearing)(Confirmed) Hypothyroidism(Confi Active rmed) Neuropathy(Confirmed Active )1 Rheumatoid Active arthritis(Confirmed) 1bilateral feet and legs Allergies, Adverse Reactions, Alerts Substance Reaction Severity Status Humira Active Medications No data available for this section Results No data available for this section Immunizations No data available for this section Procedures Procedure Date Related Diagnosis Body Site Status Colonoscopy Completed Enteral tube feeding1 Completed Hemorrhoidectomy2 Completed Laminectomy Completed Ligament repair3 Completed Operation4 Completed Operation5 Completed 1Insertion 2006 220 years ago [address] 4Removed right jaw due to oral cancer 5Dental Implant Surgery 2007 Social History Social History Type Response Alcohol Past, Previous treatment: None. Alcohol use interferes with work or home: No. Smoking Status Former smoker; Type: Cigarettes; Exposure to Tobacco Smoke None; Cigarette Smoking Last 365 Days No; Reg Smoking Cessation Counseling No; Number of years: 30; entered on: 10/17/18 Assessment and Plan No data available for this section
--- OUTSIDE RECORDS SUMMARY | 2018-11-07 13:29 | XMS REPORT | Summary of Care ---
Author Author [facility] Organization [facility] Address Unknown Phone Unavailable Encounter SANTIAGO Limon(FAITH) [id number] Date(s): 03/21/15 - 03/21/15 [facility] [address] [place] [address]- [phone] Discharge Disposition: Home Attending Physician: Zhao Goodwin MD Referring Physician: Zhao Goodwin MD Vital Signs 1 2 3 Most recent to oldest [Reference Range]: 182.88 cm (03/14/15 11:03 AM) Height 1 2 3 Most recent to oldest [Reference Range]: 97.9 DegF (03/14/15 11:03 AM) Temperature Oral [96.4-99.1 DegF] 1 2 3 Most recent to oldest [Reference Range]: 154/59 mmHg *HI* (03/21/15 2:30 PM) 148/94 mmHg *HI* (03/21/15 2:15 PM) 167/79 mmHg *HI* (03/21/15 2:00 PM) Blood Pressure [90-140/60-90 mmHg] 1 2 3 Most recent to oldest [Reference Range]: 12 BRMIN *LOW* (03/21/15 2:15 PM) 18 BRMIN (03/21/15 2:00 PM) 12 BRMIN *LOW* (03/21/15 1:45 PM) Respiratory Rate [14-20 BRMIN] 1 2 3 Most recent to oldest [Reference Range]: 55 bpm *LOW* (03/21/15 10:00 AM) 59 bpm *LOW* (03/14/15 11:03 AM) Peripheral Pulse Rate [60-100 bpm] 1 2 3 Most recent to oldest [Reference Range]: 123.75 kg (03/14/15 11:03 AM) Weight 1 2 3 Most recent to oldest [Reference Range]: 37 m2 (03/14/15 11:03 AM) Body Mass Index Problem List Condition Effective Dates Status Health Status Informant Anxiety(Confirmed) Active History of Oral Resolved Cancer(Confirmed) Chronic pain Active syndrome(Confirmed) Cirrhosis of Active liver(Confirmed) YOMBA SHOSHONE (hard of Active hearing)(Confirmed) Hypothyroidism(Confi Active rmed) Neuropathy(Confirmed Active )1 Rheumatoid Active arthritis(Confirmed) 1bilateral feet and legs Allergies, Adverse Reactions, Alerts Substance Reaction Severity Status Humira Active Medications acetaminophen 1,000 mg, Route: IVPB, Drug form: INJ, ONCE, Dosing Weight 123.75, kg, PRN Pain Score 1-3, Start date: 03/21/15 13:53:00, Duration: 1 doses or times, Stop date: Limited # of times Start Date: 03/21/15 Stop Date: 03/21/15 Status: Discontinued aspirin 81 mg tablet, enteric coated 81 mg=1 tab, PO, Daily, # 90 tab, 3 Refill(s) Start Date: 03/14/15 Status: Ordered B Complex B Complex, 1 tab, PO, Daily, Refill(s) 0 Start Date: 03/14/15 Status: Ordered Benefiber Benefiber, PO, Refill(s) 0 Start Date: 03/14/15 Status: Ordered ceFAZolin (SCIP) 2 gm, Route: IVPB, Drug form: INJ, ONCE, Dosing Weight 123.75, kg, Start date: 1 10:31:00, Stop date: 03/21/15 10:31:00 Start Date: 03/21/15 Stop Date: 03/21/15 Status: Completed clobetasol topical 0.05% cream 1 appl, TOP, PRN, 0 Refill(s) Start Date: 03/14/15 Status: Ordered desvenlafaxine 50 mg oral tablet, extended release 50 mg=1 tab, PO, Daily, # 30 tab, 0 Refill(s) Start Date: 03/14/15 Status: Ordered fentaNYL 50 microgram, Route: IVP, Q5Min, Dosing Weight 123.75, kg, PRN Pain Score 7-10, Start date: 03/21/15 13:53:00, Duration: 2 doses or times, Stop date: Limited # of times Start Date: 03/21/15 Stop Date: 03/21/15 Status: Completed Flomax 0.4 mg oral capsule 0.4 mg=1 cap, PO, Daily, # 90 cap, 0 Refill(s) Start Date: 03/14/15 Status: Ordered flumazenil 0.2 mg, Route: IVP, PRN, Dosing Weight 123.75, kg, PRN Benzodiazepine Reversal, Initial dose, Start date: 03/21/15 13:53:00, Duration: 30 day, Stop date: 12:52:00 Start Date: 03/21/15 Stop Date: 03/21/15 Status: Discontinued glucosamine =1 tab, PO, TID, 0 Refill(s) Start Date: 03/14/15 Status: Ordered hydromorphone 0.5 mg, Route: IVP, Q5Min, Dosing Weight 123.75, kg, PRN Pain Score 7-10, Start date: 03/21/15 13:53:00, Duration: 4 doses or times, Stop date: Limited # of teresa es Start Date: 03/21/15 Stop Date: 03/21/15 Status: Discontinued Lactated Ringers Injection IV 1000 mL 1,000 mL, Rate: 25 ml/hr, Infuse over: 40 hr, Route: IV, Dosing Weight 123.75 kg , Total Volume: 1,000, Start date: 03/21/15 10:37:00, Duration: 30 day, Stop kingsley e: 04/20/15 10:36:00 Start Date: 03/21/15 Stop Date: 03/21/15 Status: Discontinued levothyroxine 100 mcg (0.1 mg) oral tablet 100 microgram=1 tab, PO, Daily, # 30 tab, 0 Refill(s) Start Date: 03/14/15 Status: Ordered Lyrica 150 mg oral capsule 150 mg=1 cap, PO, BID, # 60 cap, 1 Refill(s) Start Date: 03/14/15 Status: Ordered meperidine 12.5 mg, Route: IVP, Q30Min, Dosing Weight 123.75, kg, PRN Other -See Comment, F or shivering, Start date: 03/21/15 13:53:00, Duration: 2 doses or times, Stop da te: Limited # of times Start Date: 03/21/15 Stop Date: 03/21/15 Status: Discontinued metFORMIN 500 mg, PO, Daily, 0 Refill(s) Start Date: 03/14/15 Status: Ordered Methylpredisone Methylpredisone, 0.4 mg=, Daily, Refill(s) 0 Start Date: 03/14/15 Status: Ordered midodrine 5 mg oral tablet 5 mg=1 tab, PO, TID, # 90 tab, 3 Refill(s) Start Date: 03/14/15 Status: Ordered milk thistle oral tablet 1 tab, PO, TID, 0 Refill(s) Start Date: 03/14/15 Status: Ordered morphine 30 mg oral tablet 30 mg=1 tab, PO, Q4H, PRN Pain, 0 Refill(s) Start Date: 03/14/15 Stop Date: 03/21/15 Status: Ordered morphine Sulfate 2 mg, Route: IVP, Q3H, Dosing Weight 123.75, kg, PRN Pain Score 1-3, Start date: 03/21/15 13:43:00, Duration: 30 day, Stop date: 04/20/15 13:42:00 Start Date: 03/21/15 Stop Date: 03/21/15 Status: Discontinued multivitamin 1 tab, PO, Daily, 0 Refill(s) Start Date: 03/14/15 Status: Ordered naloxone 0.04 mg, Route: IVP, Q2MIN, Dosing Weight 123.75, kg, PRN Narcotic Reversal, Sta rt date: 03/21/15 13:53:00, Duration: 8 doses or times, Stop date: Limited # of times Start Date: 03/21/15 Stop Date: 03/21/15 Status: Discontinued Nucynta 100 mg oral tablet 100 mg=1 tab, PO, Q6H, PRN for pain, 0 Refill(s) Start Date: 03/14/15 Stop Date: 03/21/15 Status: Ordered omega-3 polyunsaturated fatty acids =1 tab, PO, Daily, 0 Refill(s) Start Date: 03/14/15 Status: Ordered omeprazole PO, Daily, 0 Refill(s) Start Date: 03/14/15 Status: Ordered ondansetron 4 mg, Route: IVP, ONCE, Dosing Weight 123.75, kg, PRN Nausea & Vomiting, Start date: 03/21/15 13:53:00 Start Date: 03/21/15 Stop Date: 03/21/15 Status: Completed oxyCODONE 5 mg, Route: PO, Drug form: TAB, Q4H, Dosing Weight 123.75, kg, PRN Pain Score 4 -6, Start date: 03/21/15 13:53:00, Duration: 30 day, Stop date: 04/20/15 13:52:0 0 Start Date: 03/21/15 Stop Date: 03/21/15 Status: Discontinued Plaquenil 200 mg oral tablet 200 mg=1 tab, PO, Daily, 0 Refill(s) Start Date: 03/14/15 Status: Ordered predniSONE 5 mg oral tablet 5 mg=1 tab, PO, Daily, Give with food., # 7 tab, 0 Refill(s) Special Instructions: Give with food. Start Date: 03/14/15 Stop Date: 03/21/15 Status: Ordered Simponi SmartJect 50 mg/0.5 mL subcutaneous solution 50 mg=0.5 ml, SUB-Q, qMonth, # 1 ea, 0 Refill(s) Start Date: 03/14/15 Status: Ordered Solaraze 0.5 gm=, TOP, BID, skin lesions on scalp and forehead, 0 Refill(s) Special Instructions: skin lesions on scalp and forehead Start Date: 03/14/15 Status: Ordered Vitamin C 1000 mg oral tablet 1,000 mg=1 tab, PO, Daily, # 30 tab, 0 Refill(s) Start Date: 03/14/15 Status: Ordered Vitamin D3 1000 IU, PO, Daily, 0 Refill(s) Start Date: 03/14/15 Status: Ordered Xanax 1 mg oral tablet 1 mg=1 tab, PO, BID, 0 Refill(s) Start Date: 03/14/15 Status: Ordered Results ELECTROLYTES Most recent to 1 oldest [Reference Range]: Sodium Lvl [135-145 137 mEq/L mEq/L] (03/14/15 12:02 PM) Potassium Lvl 4.2 mEq/L [3.5-5.1 mEq/L] (03/14/15 12:02 PM) Chloride Lvl [95-109 100 mEq/L mEq/L] (03/14/15 12:02 PM) CO2 [24-32 mEq/L] 34 mEq/L *HI* (03/14/15 12:02 PM) AGAP [10.0-20.0 7.2 mEq/L mEq/L] *LOW* (03/14/15 12:02 PM) CHEM PANEL Most recent to 1 oldest [Reference Range]: Creatinine Lvl 1.0 mg/dL [0.5-1.4 mg/dL] (03/14/15 12: PM) eGFR 82 mL/min/1.73m2 1 *NA* (03/14/15: PM) BUN [7-22 mg/dL] 17 mg/dL (03/14/15: PM) Glucose Lvl [70-99 115 mg/dL mg/dL] *HI* (03/14/15: PM) Calcium Lvl 8.7 mg/dL [8.5-10.5 mg/dL] (03/14/15 12: PM) 1Result Comment: The eGFR is calculated using the CKD-EPI formula. In most young, healthy individuals the eGFR will be >90 mL/min/1.73m2. The eGFR declines with age. An eGFR of 60-89 may be normal in some populations, particularly the elderly, for whom the CKD-EPI formula has not been extensively validated. Use of the eGFR is not recommended in the following populations: Individuals with unstable creatinine concentrations, including patients and those with serious co-morbid conditions. Patients with extremes in muscle mass or diet. The data above are obtained from the National Kidney Disease Education Program ( NKDEP) which additionally recommends that when the eGFR is used in patients with extremes of body mass index for purposes of drug dosing, the eGFR should be mul tiplied by the estimated BMI. HEMATOLOGY Most recent to 1 oldest [Reference Range]: WBC [3.7-10.4 K/CMM] 7.7 K/CMM (03/14/15 12: PM) RBC [4.70-6.10 4.48 M/CMM M/CMM] *LOW* (03/14/15: PM) Hgb [14.0-18.0 g/dL] 13.8 g/dL *LOW* (03/14/15: PM) Hct [42.0-54.0 %] 42.7 % (03/14/15 12:02 PM) MCV [80.0-94.0 fL] 95.3 fL *HI* (03/14/15: PM) MCH [27.0-31.0 pg] 30.8 pg (03/14/15: PM) MCHC [32.0-36.0 32.3 g/dL g/dL] (03/14/15: PM) RDW [11.5-14.5 %] 14.5 % (03/14/15 12: PM) Platelet [133-450 146 K/CMM K/CMM] (03/14/15: PM) MPV [7.4-10.4 fL] 8.1 fL (03/14/15: PM) Segs [45.0-75.0 %] 78.8 % *HI* (03/14/15: PM) Lymphocytes 11.0 % [20.0-40.0 %] *LOW* (03/14/15:02 PM) Monocytes [2.0-12.0 8.5 % %] (03/14/15 12:02 PM) Eosinophils [0.0-4.0 1.4 % %] (03/14/15 12: PM) Basophils [0.0-1.0 0.3 % %] (03/14/15 12:02 PM) Segs-Bands # 6.0 K/CMM [1.5-8.1 K/CMM] (03/14/15 12:02 PM) Lymphocytes # 0.8 K/CMM [1.0-5.5 K/CMM] *LOW* (03/14/15 12:02 PM) Monocytes # [0.0-0.8 0.6 K/CMM K/CMM] (03/14/15 12:02 PM) Eosinophils # 0.1 K/CMM [0.0-0.5 K/CMM] (03/14/15:02 PM) PT [12.0-14.7 13.4 seconds seconds] (03/14/15: PM) INR [0.85-1.17] 0.99 (03/14/15 12:02 PM) PTT [22.9-35.8 27.1 seconds seconds] (03/14/15 12:02 PM) Immunizations No data available for this section Procedures Procedure Date Related Diagnosis Body Site Colonoscopy Enteral tube feeding1 Hemorrhoidectomy2 Laminectomy Ligament repair3 Operation4 Operation5 1Insertion 2006 220 years ago [address] 4Removed right jaw due to oral cancer 5Dental Implant Surgery 2007 Social History Social History Type Response Alcohol Past, Previous treatment: None. Alcohol use interferes with work or home: No. Smoking Status Former smoker; Type: Cigarettes; Number of years: 30; Exposure to Tobacco Smoke None; Cigarette Smoking Last 365 Days No; Reg Smoking Cessation Counseling No Assessment and Plan No data available for this section
--- OUTSIDE RECORDS SUMMARY | 2018-11-07 13:29 | XMS REPORT | Summary of Care ---
Author Author [facility] Organization [facility] Address Unknown Phone Unavailable Encounter SANTIAGO Limon(FAITH) [id number] Date(s): 08/29/18 - 08/29/18 [facility] [address] [place] [address]- Discharge Disposition: Home or Self Care Attending Physician: Shanita Yang MD Referring Physician: Shanita Yang MD Vital Signs 1 2 3 Most recent to oldest [Reference Range]: 182.88 cm (08/29/18 9:33 AM) Height 97.5 DegF (08/29/18 10:22 AM) Temperature Oral [96.4-99.1 DegF] 141/61 mmHg *HI* (08/29/18 2:00 PM) 115/60 mmHg (08/29/18 1:30 PM) 120/61 mmHg (08/29/18 1:00 PM) Blood Pressure [90-140/60-90 mmHg] 20 BRMIN (08/29/18 10:22 AM) Respiratory Rate [14-20 BRMIN] 102.273 kg (08/29/18 9:33 AM) Weight 30.58 m2 (08/29/18 9:33 AM) Body Mass Index Problem List Condition Effective Dates Status Health Status Informant Anxiety(Confirmed) Active History of Oral Resolved Cancer(Confirmed) Chronic pain Active syndrome(Confirmed) Cirrhosis of Active liver(Confirmed) [place] (hard of Active hearing)(Confirmed) Hypothyroidism(Confi Active rmed) Neuropathy(Confirmed Active )1 Rheumatoid Active arthritis(Confirmed) 1bilateral feet and legs Allergies, Adverse Reactions, Alerts Substance Reaction Severity Status Humira Active Medications acetaminophen 325 mg, 1 tab, Route: PO, Drug form: TAB, Q4H, Dosing Weight 102.273, kg, PRN Pa in Score 4-6, Start date: 08/29/18 12:14:00 CDT, Duration: 30 day, Stop date: 12:13:00 CDT Notes: Do not exceed 4 gm/day. (Same as: Tylenol) Start Date: 08/29/18 Stop Date: 08/30/18 Status: Discontinued acetaminophen-codeine #3 1 tab, Route: PO, Drug Form: TAB, Dosing Weight 102.273, kg, Q4H, PRN Pain Score 4-6, Start date: 08/29/18 12:14:00 CDT, Duration: 30 day, Stop date: 09/28/18 1 2:13:00 CDT Notes: Do not exceed 4gm/day of acetaminophen. (Same as: Tylenol with Codeine # 3) Start Date: 08/29/18 Stop Date: 08/30/18 Status: Discontinued Ambien CR 12.5 mg oral tablet, extended release 12.5 mg=1 tab, PO, Bedtime, PRN for sleep, 0 Refill(s) Start Date: 08/29/18 Stop Date: 09/12/18 Status: Ordered Linzess 72 mcg oral capsule 72 microgram=1 cap, PO, Daily, 0 Refill(s) Start Date: 08/29/18 Status: Ordered Lipitor 10 mg oral tablet 10 mg=1 tab, PO, Daily, 0 Refill(s) Start Date: 08/29/18 Status: Ordered metoprolol 25 mg oral tablet, extended release 25 mg=1 tab, PO, Daily, 0 Refill(s) Start Date: 08/29/18 Status: Ordered NS 1,000 mL 1,000 mL, Rate: 100 ml/hr, Infuse over: 10 hr, Route: IV, Dosing Weight 102.273 kg, Total Volume: 1,000, Priority: NOW, Start date: 08/29/18 10:31:00 CDT, Durat ion: 30 day, Stop date: 09/28/18 10:30:00 CDT, 2.3, m2 Start Date: 08/29/18 Stop Date: 08/30/18 Status: Discontinued ondansetron 4 mg, 2 mL, Route: IVP, Drug form: INJ, Q8H, Dosing Weight 102.273, kg, PRN Naus ea & Vomiting, Start date: 08/29/18 12:14:00 CDT, Duration: 30 day, Stop date: 09/28/18 12:13:00 CDT Notes: (Same as: Evan) MEDICATION WASTE Product Size: 4 mgProduct Was usman: ___ mg Start Date: 08/29/18 Stop Date: 08/30/18 Status: Discontinued Orencia 125 mg/mL subcutaneous solution 125 mg, SUB-Q, 0 Refill(s) Start Date: 08/29/18 Status: Ordered Plavix 75 mg oral tablet 75 mg=1 tab, PO, Daily, 0 Refill(s) Start Date: 08/29/18 Status: Ordered Pristiq 50 mg oral tablet, extended release 50 mg=1 tab, PO, Daily, # 30 tab, 0 Refill(s) Start Date: 08/29/18 Status: Ordered Sodium Chloride 0.9% IV 750 mL 750 mL, Rate: 75 ml/hr, Infuse over: 10 hr, Route: IV, Dosing Weight 102.273 kg, Total Volume: 750, Start date: 08/29/18 12:14:00 CDT, Duration: 10 hr, Stop kingsley e: 08/29/18 22:13:00 CDT, 2.3, m2 Start Date: 08/29/18 Stop Date: 08/29/18 Status: Completed tizanidine 2 mg, PO, 0 Refill(s) Start Date: 08/29/18 Status: Ordered Unknown Home Medication See Instructions, dosage unknow oxychontin/acetaminophen, Refill(s) 0 Start Date: 08/29/18 Status: Ordered Results No data available for this section Immunizations No data available for this section Procedures Procedure Date Related Diagnosis Body Site Status Colonoscopy Completed Enteral tube feeding1 Completed Hemorrhoidectomy2 Completed Laminectomy Completed Ligament repair3 Completed Operation4 Completed Operation5 Completed 1Insertion 2007 220 years ago [address] 4Removed right jaw due to oral cancer 5Dental Implant Surgery 2007 Social History Social History Type Response Alcohol Past, Previous treatment: None. Alcohol use interferes with work or home: No. Smoking Status Former smoker; Type: Cigarettes; Exposure to Tobacco Smoke None; Cigarette Smoking Last 365 Days No; Reg Smoking Cessation Counseling No; Number of years: 30; entered on: 08/29/18 Assessment and Plan Extracted from: Title: Clinical Document Author: Shanita Yang MD Date: 08/29/18 Left heart catheterization Indication: CHF LVEF 40% , abnormal nuclear stress test Procedure details: The patient was prepped and draped in the usual sterile fashion. Local lidocaine was used in the right groin. The right femoral artery was cannulated via micropuncture technique. A 5 Bulgarian sheath was placed in the right femoral artery. A JL4 diagnostic catheter was used to cannulate the left coronary artery. Angiographic views were obtained. Additional views were taken with a JL 4.5 diagnostic catheter. A JR4 catheter was initially used but was unable to engage the right coronary artery. A 3 DRC was not able to engage the right coronary artery. We then used an AL-1 catheter to engage the right coronary artery. Angiographic views were obtained. The right coronary artery was a smaller caliber vessel and had a high anterior takeoff. the pigtail catheter was used to cross the aortic valve. Hemodynamics were obtained in the left ventricle. We then measured gradients across the aortic valve. There was no gradient. A right iliofemoral angiogram showed above bifurcation vascular acces s. Hemostasis was obtained with the mynx closure device. Total radiation dose 879 mgray Total dye load 75 Visipaque Moderate sedation time 30 minutes Hemodynamics: Left ventricular end-diastolic pressure 12 mm Hg Coronaries: Co dominant Left main-large vessel distal left main 30% eccentric plaque LAD-calcified and the exterior segments the proximal LAD has a 20% plaque the LAD tapers down to a smaller caliber vessel with mild plaque Small caliber ramus mild plaque Circumflex-calcified on the exterior segments proximal 20% plaque gives rise to obtuse marginal 1 and posterolateral branch mild plaque RCA-high anterior takeoff calcified vessel in the exterior segments proximal mid have 20-30% plaque. The RCA gives rise to a small PDA. Conclusions: Calcified coronary arteries mainly on the exterior surfaces mild nonobstructive plaque. There is a 30% distal left main stenosis Recommendation: Continue strict medical therapy with antiplatelet therapy and statin. Continue medical therapy for congestive heart failure, LV filling pressures are normal
--- OUTSIDE RECORDS SUMMARY | 2018-11-07 13:29 | XMS REPORT | Summary of Care ---
Author Author [facility] Organization [facility] Address Unknown Phone Unavailable Encounter SANTIAGO Limon(FAITH) [id number] Date(s): 10/31/18 - 10/31/18 [facility] [address] [place] [address]- Discharge Disposition: Home or Self Care Attending Physician: Shanita Yang MD Referring Physician: Shanita Yang MD Vital Signs 1 2 3 Most recent to oldest [Reference Range]: 182.88 cm (10/31/18 9:28 AM) Height 97.4 DegF (10/31/18 1:06 PM) 97.6 DegF (10/31/18 10:00 AM) Temperature Oral [96.4-99.1 DegF] 134/68 mmHg (10/31/18 6:00 PM) 137/61 mmHg (10/31/18 5:00 PM) 126/68 mmHg (10/31/18 4:00 PM) Blood Pressure [90-140/60-90 mmHg] 16 BRMIN (10/31/18 6:00 PM) 21 BRMIN *HI* (10/31/18 5:00 PM) 16 BRMIN (10/31/18 4:00 PM) Respiratory Rate [14-20 BRMIN] 123.636 kg (10/31/18 9:28 AM) Weight 36.97 m2 (10/31/18 9:28 AM) Body Mass Index Problem List Condition Effective Dates Status Health Status Informant Anxiety(Confirmed) Active History of Oral Resolved Cancer(Confirmed) Chronic pain Active syndrome(Confirmed) Cirrhosis of Active liver(Confirmed) [place] (hard of Active hearing)(Confirmed) Hypothyroidism(Confi Active rmed) Neuropathy(Confirmed Active )1 Rheumatoid Active arthritis(Confirmed) 1bilateral feet and legs Allergies, Adverse Reactions, Alerts Substance Reaction Severity Status Humira Active Medications acetaminophen 325 mg, 1 tab, Route: PO, Drug form: TAB, Q4H, Dosing Weight 123.636, kg, PRN Pa in Score 1-3, Start date: 10/31/18 12:50:00 CDT, Duration: 30 day, Stop date: 12:49:00 CDT Notes: Do not exceed 4 gm/day. (Same as: Tylenol) Start Date: 10/31/18 Stop Date: 11/01/18 Status: Discontinued acetaminophen-codeine #3 1 tab, Route: PO, Drug Form: TAB, Dosing Weight 123.636, kg, Q4H, PRN Pain Score 4-6, Start date: 10/31/18 12:50:00 CDT, Duration: 30 day, Stop date: 11/30/18 1 2:49:00 CDT Notes: Do not exceed 4gm/day of acetaminophen. (Same as: Tylenol with Codeine # 3) Start Date: 10/31/18 Stop Date: 11/01/18 Status: Discontinued [place] 5/325 oral tablet 2 tab, Route: PO, Drug Form: TAB, Dosing Weight 123.636, kg, Q4H, PRN Pain Score 7-10, Start date: 10/31/18 12:59:00 CDT, Duration: 30 day, Stop date: 11/30/18 12:58:00 CDT Notes: (Same as: [place] 325/5) Do not exceed 4gm/day of acetaminophen. Start Date: 10/31/18 Stop Date: 11/01/18 Status: Discontinued normal saline 0.9% IV 1,000 mL 1,000 mL, Rate: 100 ml/hr, Infuse over: 10 hr, Route: IV, Dosing Weight 123.636 kg, Total Volume: 1,000, Start date: 10/31/18 9:55:00 CDT, Duration: 30 day, Sto p date: 11/30/18 9:54:00 CDT, 2.53, m2 Start Date: 10/31/18 Stop Date: 10/31/18 Status: Discontinued ondansetron 4 mg, 2 mL, Route: IVP, Drug form: INJ, Q8H, Dosing Weight 123.636, kg, PRN Naus ea & Vomiting, Start date: 10/31/18 12:50:00 CDT, Duration: 30 day, Stop date: 11/30/18 12:49:00 CDT Notes: (Same as: Evan) MEDICATION WASTE Product Size: 4 mgProduct Was usman: ___ mg Start Date: 10/31/18 Stop Date: 11/01/18 Status: Discontinued Sodium Chloride 0.9% IV 750 mL 750 mL, Rate: 75 ml/hr, Infuse over: 10 hr, Route: IV, Dosing Weight 123.636 kg, Total Volume: 750, Start date: 10/31/18 12:50:00 CDT, Duration: 10 hr, Stop kingsley e: 10/31/18 22:49:00 CDT, 2.53, m2 Start Date: 10/31/18 Stop Date: 10/31/18 Status: Completed Results No data available for this section Immunizations No data available for this section Procedures Procedure Date Related Diagnosis Body Site Status Peripheral angiography 10/31/18 Completed Colonoscopy Completed Enteral tube feeding1 Completed Hemorrhoidectomy2 Completed Laminectomy Completed Ligament repair3 Completed Operation4 Completed Operation5 Completed 1Insertion 2006 220 years ago [address] 4Removed right jaw due to oral cancer 5Dental Implant Surgery 2007 Social History Social History Type Response Alcohol Past, Previous treatment: None. Alcohol use interferes with work or home: No. Smoking Status Former smoker; Type: Cigarettes; Exposure to Tobacco Smoke None; Cigarette Smoking Last 365 Days No; Reg Smoking Cessation Counseling No; Number of years: 30; entered on: 10/31/18 Assessment and Plan Extracted from: Title: Clinical Document Author: Shanita Yang MD Date: 10/31/18 Operative report Procedure: Abdominal aortogram at the level of the renals of bilateral lower extremity angiogram Left external iliac stent Left proximal superficial femoral artery stent Hemostasis in the right groin with a Mynx closure device Indication: PAD with claudication abnormal arterial Dopplers Procedure details: Patient was prepped and draped in the usual sterile fashion. The right groin was incised 20 cc 1% Xylocaine. The right femoral artery was cannulated with a micropuncture ultrasound-guided technique. A 5 [place]i sheath was placed in the right femoral artery. A 5 [place]i Omni Flush catheter was placed in the abdominal aorta at the level of the renals. Abdominal aortogram with bilateral lower extremity angios were performed. We did note that the left external iliac artery to 70% stenosis. The Omni Flush catheter and advantage Glidewire were used to cross the iliac bifurcation the Omni Flush catheter was placed into the distal left external iliac artery common femoral artery. Left lower extremity Angiogram was performed. We note that the left superficial femoral artery in the very proximal segment has a 9% ulcerated narrowing. We plan to initially fix the left SFA and then the left external iliac artery. We upsized our sheath to a 6 [place] 45% centimeters Terumo sheath. IV heparin was given. A 0.035 advantage Glidewire was used to cross the iliac and SFA stenosis. A 5 x 60 balloon was used to dilate the lesion. The SFA had less than 50% stenosis after balloon dilatation. We then proceeded with stenting with a 6 x 60 EV 3 ever flex stent in the proximal SFA. Post stenting we used a 6 x 40 balloon and postdilated. The lesion went from 90% to 0%. We then turned our attention to t he left external iliac artery. We measured gradients across the iliac artery and there was a 30 mm gradient. We then used a 6 x 40 balloon and dilated the lesion. We then used a 8 x 40 ever flex self-expanding stent in the external iliac artery just near the internal iliac artery. We then used a 8 x 40 balloon to post out the lesion. The lesion went from 70% to less than 10%. We then removed our long sheath and exchanged for short 6 [place]i sheath in the right leg. Right lower extremity angiogram showed just above bifurcation vascular access hemostasis was obtained with a minx closure device. Total radiation dose is 875 mg Total dye load was 140 cc Visipaque Moderate sedation was Versed and fentanyl, moderate sedation time was 60 minutes Findings Abdominal aorta normal caliber, right and left renal artery appear to be patent Right common iliac artery angiographically normal Right external iliac artery angiographic normal Right common femoral artery mild plaque and calcification Right superficial femoral artery in the proximal segment mild plaque Below the knee was not imaged in the right leg Left common iliac artery angiographic normal Left external iliac artery 70% stenosis Left common femoral artery calcification mild plaque Left superficial femoral artery proximal calcified 90% Left popliteal artery mild plaque Left leg below the knee had a three-vessel runoff with patent anterior tibial, peroneal and posterior tibial artery with mild plaque Conclusions: Critical left external iliac artery treated with a 8 x 40 ever flex stent Critical left superficial femoral artery proximal stenosis treated with a 6 x 60 ever flex stent Recommendations: Continue clopidogrel therapy for at least 1 month.
--- OUTSIDE RECORDS SUMMARY | 2018-11-07 13:29 | XMS REPORT | Summary of Care ---
Author Author [facility] Organization [facility] Address Unknown Phone Unavailable Encounter SANTIAGO Limon(FAITH) [id number] Date(s): 10/17/18 - 10/17/18 [facility] [address] [address] [place] [address]- [phone] Discharge Disposition: Home or Self Care Attending Physician: Robin Calderon MD Referring Physician: Robin Calderon MD Vital Signs Most recent to 1 oldest [Reference Range]: Height 185.42 cm (10/17/18 8:46 AM) Temperature Oral 98.1 DegF [96.4-99.1 DegF] (10/17/18 8:46 AM) Blood Pressure 97/66 mmHg [90-140/60-90 mmHg] (10/17/18 8:46 AM) Peripheral Pulse 72 bpm Rate [60-100 bpm] (10/17/18 8:46 AM) Weight 102.273 kg (10/17/18 8:46 AM) Body Mass Index 29.75 m2 (10/17/18 8:46 AM) Problem List Condition Effective Dates Status Health Status Informant Anxiety(Confirmed) Active History of Oral Resolved Cancer(Confirmed) Chronic pain Active syndrome(Confirmed) Cirrhosis of Active liver(Confirmed) [place] (hard of Active hearing)(Confirmed) Hypothyroidism(Confi Active rmed) Neuropathy(Confirmed Active )1 Rheumatoid Active arthritis(Confirmed) 1bilateral feet and legs Allergies, Adverse Reactions, Alerts Substance Reaction Severity Status Humira Active Medications lisinopril PO, Daily, 0 Refill(s) Start Date: 10/17/18 Status: Ordered Results No data available for this section Immunizations No data available for this section Procedures Procedure Date Related Diagnosis Body Site Status Colonoscopy Completed Enteral tube feeding1 Completed Hemorrhoidectomy2 Completed Laminectomy Completed Ligament repair3 Completed Operation4 Completed Operation5 Completed 1Insertion 2007 220 years ago [address] 4Removed right jaw due to oral cancer [...]
--- OUTSIDE RECORDS SUMMARY | 2018-11-07 13:29 | XMS REPORT | Continuity of Care Document ---
Author Author [facility] Interface Address Unknown Phone Unavailable Problems Problem Status Onset Date Classification Date Reported Comments Source DX: CERVICAL RADICULOPATHY PATIENT HAS Active 10/24/2018 [facility] LT LEG CATH Active 10/18/2018 [facility] HEART CATH Active 08/15/2018 [facility] 603.0 Active 02/12/2015 [facility] Anxiety Active Problem [facility]/02[facility] of Oral Cancer Resolved Problem 11/02/[facility] Chronic pain syndrome Active Problem 11/02/2018 [facility] Cirrhosis of liver Active Problem 11/02/2018 [facility] [place] (<span ID="[id number]">Confirmed</span>) Active Problem 11/02/2018 [facility] Hypothyroidism Active Problem 11/02/2018 [facility] Neuropathy<sup>1</sup> Active Problem 11/02/2018 bilateral feet and legs [facility] Rheumatoid arthritis Active Problem 11/02/2018 [facility] ENCYSTED HYDROCELE Active [facility] Medications Medication Details Route Status Patient Instructions Ordering Provider Order Date Source Acetaminophen 325 MG / Hydrocodone Bitartrate 5 MG Oral Tablet [[place] 5/325] 2 tab, Route: PO, Drug Form: TAB, Dosing Weight 123.636, kg, Q4H, PRN Pain Score 7-10, Start date: 10/31/18 12:59:00 CDT, Duration: 30 day, Stop date: 11/30/18 12:58:00 CDTNotes: (Same as: [place] 325/5) Do not exceed 4gm/day of acetaminophen. No Longer Active 10/31/2018 [facility] Sodium Chloride 0.9% IV 750 mL 750 mL, Rate: 75 ml/hr, Infuse over: 10 hr, Route: IV, Dosing Weight 123.636 kg, Total Volume: 750, Start date: 10/31/18 12:50:00 CDT, Duration: 10 hr, Stop date: 10/31/18 22:49:00 CDT, 2.53, m2 Inactive 10/31/2018 [facility] Acetaminophen 325 mg, 1 tab, Route: PO, Drug form: TAB, Q4H, Dosing Weight 123.636, kg, PRN Pain Score 1-3, Start date: 10/31/18 12:50:00 CDT, Duration: 30 day, Stop date: 11/30/18 12:49:00 CDTNotes: Do not exceed 4 gm/day. (Same as: Tylenol) No Longer Active 10/31/2018 [facility] Ondansetron 4 mg, 2 mL, Route: IVP, Drug form: INJ, Q8H, Dosing Weight 123.636, kg, PRN Nausea & Vomiting, Start date: 10/31/18 12:50:00 CDT, Duration: 30 day, Stop date: 11/30/18 12:49:00 CDTNotes: (Same as: Evan) MEDICATION WASTE Product Size: 4 mg Product Wasted: ___ mg No Longer Active 10/31/2018 [facility] acetaminophen-codeine #3 1 tab, Route: PO, Drug Form: TAB, Dosing Weight 123.636, kg, Q4H, PRN Pain Score 4-6, Start date: 10/31/18 12:50:00 CDT, Duration: 30 day, Stop date: 11/30/18 12:49:00 CDTNotes: Do not exceed 4gm/day of acetaminophen. (Same as: Tylenol with Codeine # 3) No Longer Active 10/31/2018 [facility] normal saline 0.9% IV 1,000 mL 1,000 mL, Rate: 100 ml/hr, Infuse over: 10 hr, Route: IV, Dosing Weight 123.636 kg, Total Volume: 1,000, Start date: 10/31/18 9:55:00 CDT, Duration: 30 day, Stop date: 11/30/18 9:54:00 CDT, 2.53, m2 Inactive 10/31/2018 [facility] Lisinopril PO, Daily, 0 Refill(s) Active 10/17/2018 Anika Zheng Sodium Chloride 0.9% IV 750 mL 750 mL, Rate: 75 ml/hr, Infuse over: 10 hr, Route: IV, Dosing Weight 102.273 kg, Total Volume: 750, Start date: 08/29/18 12:14:00 CDT, Duration: 10 hr, Stop date: 08/29/18 22:13:00 CDT, 2.3, m2 Inactive 08/29/2018 [facility] Ondansetron 4 mg, 2 mL, Route: IVP, Drug form: INJ, Q8H, Dosing Weight 102.273, kg, PRN Nausea & Vomiting, Start date: 08/29/18 12:14:00 CDT, Duration: 30 day, Stop date: 09/28/18 12:13:00 CDTNotes: (Same as: Evan) MEDICATION WASTE Product Size: 4 mg Product Wasted: ___ mg No Longer Active 08/29/2018 [facility] acetaminophen-codeine #3 1 tab, Route: PO, Drug Form: TAB, Dosing Weight 102.273, kg, Q4H, PRN Pain Score 4-6, Start date: 08/29/18 12:14:00 CDT, Duration: 30 day, Stop date: 09/28/18 12:13:00 CDTNotes: Do not exceed 4gm/day of acetaminophen. (Same as: Tylenol with Codeine # 3) No Longer Active 08/29/2018 [facility] Acetaminophen 325 mg, 1 tab, Route: PO, Drug form: TAB, Q4H, Dosing Weight 102.273, kg, PRN Pain Score 4-6, Start date: 08/29/18 12:14:00 CDT, Duration: 30 day, Stop date: 09/28/18 12:13:00 CDTNotes: Do not exceed 4 gm/day. (Same as: Tylenol) No Longer Active 08/29/2018 [facility] NS 1,000 mL 1,000 mL, Rate: 100 ml/hr, Infuse over: 10 hr, Route: IV, Dosing Weight 102.273 kg, Total Volume: 1,000, Priority: NOW, Start date: 08/29/18 10:31:00 CDT, Duration: 30 day, Stop date: 09/28/18 10:30: 00 CDT, 2.3, m2 No Longer Active 08/29/2018 [facility] linaclotide 0.072 MG Oral Capsule [Linzess] 72 microgram=1 cap, PO, Daily, 0 Refill(s) Active 08/29/2018 [facility] 24 HR Desvenlafaxine 50 MG Extended Release Tablet [Pristiq] 50 mg=1 tab, PO, Daily, # 30 tab, 0 Refill(s) Active 08/29/2018 [facility] Zolpidem tartrate 12.5 MG Extended Release Tablet [Ambien] 12.5 mg=1 tab, PO, Bedtime, PRN for sleep, 0 Refill(s) Active 08/29/2018 [facility] tizanidine 2 mg, PO, 0 Refill(s) Active 08/29/2018 [facility] Unknown Home Medication See Instructions, dosage unknow oxychontin/acetaminophen, Refill(s) 0 Active 08/29/2018 [facility] 1 ML abatacept 125 MG/ML Prefilled Syringe [Orencia] 125 mg, SUB-Q, 0 Refill(s) Active 08/29/2018 [facility] atorvastatin 10 MG Oral Tablet [Lipitor] 10 mg=1 tab, PO, Daily, 0 Refill(s) Active 08/29/2018 [facility] metoprolol 25 mg oral tablet, extended release 25 mg=1 tab, PO, Daily, 0 Refill(s) Active 08/29/2018 [facility] clopidogrel 75 MG Oral Tablet [Plavix] 75 mg=1 tab, PO, Daily, 0 Refill(s) Active 08/29/2018 [facility] Flumazenil 0.2 mg, Route: IVP, PRN, Dosing Weight 123.75, kg, PRN Benzodiazepine Reversal, Initial dose, Start date: 03/21/15 13:53:00, Duration: 30 day, Stop date: 04/20/15 12:52:00 Inactive 03/21/2015 [facility] Ondansetron 4 mg, Route: IVP, ONCE, Dosing Weight 123.75, kg, PRN Nausea & Vomiting, Start date: 03/21/15 13:53:00 Inactive 03/21/2015 [facility] Meperidine 12.5 mg, Route: IVP, Q30Min, Dosing Weight 123.75, kg, PRN Other -See Comment, For shivering, Start date: 03/21/15 13:53:00, Duration: 2 doses or times, Stop date: Limited # of times Inactive 03/21/2015 [facility] Hydromorphone 0.5 mg, Route: IVP, Q5Min, Dosing Weight 123.75, kg, PRN Pain Score 7-10, Start date: 03/21/15 13:53:00, Duration: 4 doses or times, Stop date: Limited # of times Inactive 03/21/2015 [facility] Fentanyl 50 microgram, Route: IVP, Q5Min, Dosing Weight 123.75, kg, PRN Pain Score 7-10, Start date: 03/21/15 13:53:00, Duration: 2 doses or times, Stop date: Limited # of times Inactive 03/21/2015 [facility] Naloxone 0.04 mg, Route: IVP, Q2MIN, Dosing Weight 123.75, kg, PRN Narcotic Reversal, Start date: 03/21/15 13:53:00, Duration: 8 doses or times, Stop date: Limited # of times Inactive 03/21/2015 [facility] Oxycodone 5 mg, Route: PO, Drug form: TAB, Q4H, Dosing Weight 123.75, kg, PRN Pain Score 4-6, Start date: 03/21/15 13:53:00, Duration: 30 day, Stop date: 04/20/15 13:52:00 Inactive 03/21/2015 [facility] Acetaminophen 1,000 mg, Route: IVPB, Drug form: INJ, ONCE, Dosing Weight 123.75, kg, PRN Pain Score 1-3, Start date: 03/21/15 13:53:00, Duration: 1 doses or times, Stop date: Limited # of times Inactive 03/21/2015 [facility] Morphine 2 mg, Route: IVP, Q3H, Dosing Weight 123.75, kg, PRN Pain Score 1-3, Start date: 03/21/15 13:43:00, Duration: 30 day, Stop date: 04/20/15 13:42:00 Inactive 03/21/2015 [facility] Calcium Chloride 0.0014 MEQ/ML / Potassium Chloride 0.004 MEQ/ML / Sodium Chloride 0.103 MEQ/ML / Sodium Lactate 0.028 MEQ/ML Injectable Solution 1,000 mL, Rate: 25 ml/hr, Infuse over: 40 hr, Route: IV, Dosing Weight 123.75 kg, Total Volume: 1,000, Start date: 03/21/15 10:37:00, Duration: 30 day, Stop date: 04/20/15 10:36:00 Inactive 03/21/2015 [facility] ceFAZolin (SCIP) 2 gm, Route: IVPB, Drug form: INJ, ONCE, Dosing Weight 123.75, kg, Start date: 03/21/15 10:31:00, Stop date: 03/21/15 10:31:00 Inactive 03/21/2015 [facility] predniSONE 5 mg oral tablet 5 mg=1 tab, PO, Daily, Give with food., # 7 tab, 0 Refill(s)Special Instructions: Give with food. Active 03/14/2015 [facility] Vitamin C 1000 mg oral tablet 1,000 mg=1 tab, PO, Daily, # 30 tab, 0 Refill(s) Active 03/14/2015 [facility] Vitamin D3 1000 IU, PO, Daily, 0 Refill(s) Active 03/14/2015 [facility] multivitamin 1 tab, PO, Daily, 0 Refill(s) Active 03/14/2015 [facility] omega-3 polyunsaturated fatty acids =1 tab, PO, Daily, 0 Refill(s) Active 03/14/2015 [facility] Glucosamine =1 tab, PO, TID, 0 Refill(s) Active 03/14/2015 [facility] milk thistle oral tablet 1 tab, PO, TID, 0 Refill(s) Active 03/14/2015 [facility] B Complex B Complex, 1 tab, PO, Daily, Refill(s) 0 Active 03/14/2015 [facility] Benefiber Benefiber, PO, Refill(s) 0 Active 03/14/2015 [facility] Solaraze 0.5 gm=, TOP, BID, skin lesions on scalp and forehead, 0 Refill(s)Special Instructions: skin lesions on scalp and forehead Active 03/14/2015 [facility] Clobetasol Propionate 0.5 MG/ML Topical Cream 1 appl, TOP, PRN, 0 Refill(s) Active 03/14/2015 [facility] Omeprazole PO, Daily, 0 Refill(s) Active 03/14/2015 [facility] levothyroxine 100 mcg (0.1 mg) oral tablet 100 microgram=1 tab, PO, Daily, # 30 tab, 0 Refill(s) Active 03/14/2015 [facility] tapentadol 100 MG Oral Tablet [Nucynta] 100 mg=1 tab, PO, Q6H, PRN for pain, 0 Refill(s) Active 03/14/2015 [facility] Aspirin 81 MG Enteric Coated Tablet 81 mg=1 tab, PO, Daily, # 90 tab, 3 Refill(s) Active 03/14/2015 [facility] midodrine 5 mg oral tablet 5 mg=1 tab, PO, TID, # 90 tab, 3 Refill(s) Active 03/14/2015 [facility] Alprazolam 1 MG Oral Tablet [Xanax] 1 mg=1 tab, PO, BID, 0 Refill(s) Active 03/14/2015 [facility] morphine 30 mg oral tablet 30 mg=1 tab, PO, Q4H, PRN Pain, 0 Refill(s) Active 03/14/2015 [facility] pregabalin 150 MG Oral Capsule [Lyrica] 150 mg=1 cap, PO, BID, # 60 cap, 1 Refill(s) Active 03/14/2015 [facility] Methylpredisone Methylpredisone, 0.4 mg=, Daily, Refill(s) 0 Active 03/14/2015 [facility] desvenlafaxine 50 mg oral tablet, extended release 50 mg=1 tab, PO, Daily, # 30 tab, 0 Refill(s) Active 03/14/2015 [facility] Hydroxychloroquine Sulfate 200 MG Oral Tablet [Plaquenil] 200 mg=1 tab, PO, Daily, 0 Refill(s) Active 03/14/2015 [facility] Metformin 500 mg, PO, Daily, 0 Refill(s) Active 03/14/2015 [facility] Tamsulosin hydrochloride 0.4 MG Oral Capsule [Flomax] 0.4 mg=1 cap, PO, Daily, # 90 cap, 0 Refill(s) Active 03/14/2015 [facility] 0.5 ML golimumab 100 MG/ML Prefilled Syringe [Simponi] 50 mg=0.5 ml, SUB-Q, qMonth, # 1 ea, 0 Refill(s) Active 03/14/2015 [facility] Allergies, Adverse Reactions, Alerts Substance Category Reaction Severity Reaction type Status Date Reported Comments Source Humira Assertion Drug allergy Active [facility] Immunizations Immunization Date Given Site Status Last Updated Comments Source Results Order Name Results Value Reference Range Date Interpretation Comments Source Spine cervical wo contrast MRI Spine cervical wo contrast MRI Clinical Indication: Cervical radiculpathy. - Cervical spine aches with numbness radiates down to both arms and fingers X6 months. H/O cancer... Comparison: None TECHNIQUE: Multiplanar T1, T2, STIR weighted MRI of the cervical spine is performed on the 1.5 Candace magnet. CONTRAST: None FINDINGS: ALIGNMENT AND GENERAL ASSESSMENT: Alignment of the cervical spine is within normal limits. The posterior fossa and brainstem are outside the [id number]. The cervical spinal cord demonstrate normal signal and contour. There is no cervical syrinx or cord signal abnormality demonstrated. The paraspinous soft tissues appear unremarkable. Codominant vertebral system. Vertebral flow voids appear preserved. DISC SPACES: C2-C3: Mild facet degenerative changes on the left. Mild disc desiccation without significant disc bulge or protrusion evident. Mild left foraminal narrowing. No spinal canal stenosis. No right-sided foraminal narrowing. C3-C4: Central disc protrusion. Mild facet degenerative changes. Mild bilateral foraminal narrowing. No spinal canal stenosis. C4-C5: Posterior disc bulge with bilateral uncovertebral spurring. Moderate facet degenerative changes. Severe bilateral foraminal narrowing worse on the left. No spinal canal stenosis. C5-C6: Diffuse posterior disc bulge. Moderate facet degenerative changes. Severe bilateral foraminal narrowing. Mild spinal canal stenosis. Spinal canal measures 9 mm. C6-C7: Posterior disc bulge. No spinal canal stenosis. No foraminal narrowing. No significant facet degenerative changes. C7-T1: Mild posterior disc bulge. No spinal canal stenosis. Mild bilateral foraminal narrowing. Mild facet degenerative changes. IMPRESSION: 1. Severe bilateral foraminal narrowing at C4-C5 and C5-C6. 2. Mild spinal canal stenosis at C5-C6. SL: VKUDITHIYUNIER 10/28/2018 - - Read by: Yosef Gray MD Dictated Date/time: 10/28/18 18:53 Electronically Signed by: Yosef Gray MD 10/28/18 19:05 FINAL REPORT [facility] ELECTROLYTES AGAP 7.2 meq/L 10.0 - 20.0 03/14/2015 [facility] ELECTROLYTES eGFR 82 mL/min/1.73m2 03/14/2015 Result Comment: The eGFR is calculated using the [...] from the National Kidney Disease Education Program (NKDEP) which additionally recommends that when the eGFR is used in patients with extremes of body mass index for purposes of drug dosing, the eGFR should be multiplied by the estimated BMI. [facility] ELECTROLYTES Calcium Lvl 8.7 mg/dL 8.5 - 10.5 03/14/2015 [facility] ELECTROLYTES Chloride Lvl 100 meq/L 95 - 109 03/14/2015 [facility] ELECTROLYTES Sodium Lvl 137 meq/L 135 - 145 03/14/2015 [facility] ELECTROLYTES Potassium Lvl 4.2 meq/L 3.5 - 5.1 03/14/2015 [facility] ELECTROLYTES Creatinine Lvl 1.0 mg/dL 0.5 - 1.4 03/14/2015 [facility] ELECTROLYTES Glucose Lvl 115 mg/dL 70 - 99 03/14/2015 [facility] ELECTROLYTES BUN 17 mg/dL 7 - 22 03/14/2015 [facility] ELECTROLYTES CO2 34 meq/L 24 - 32 03/14/2015 [facility] HEMATOLOGY Segs-Bands # 6.0 K/CMM 1.5 - 8.1 03/14/2015 [facility] HEMATOLOGY Lymphocytes # 0.8 K/CMM 1.0 - 5.5 03/14/2015 [facility] HEMATOLOGY Monocytes # 0.6 K/CMM 0.0 - 0.8 03/14/2015 [facility] HEMATOLOGY Eosinophils # 0.1 K/CMM 0.0 - 0.5 03/14/2015 [facility] HEMATOLOGY Monocytes 8.5 % 2.0 - 12.0 03/14/2015 [facility] HEMATOLOGY Eosinophils 1.4 % 0.0 - 4.0 03/14/2015 [facility] HEMATOLOGY Basophils 0.3 % 0.0 - 1.0 03/14/2015 [facility] HEMATOLOGY Lymphocytes 11.0 % 20.0 - 40.0 03/14/2015 [facility] HEMATOLOGY Segs 78.8 % 45.0 - 75.0 03/14/2015 [facility] HEMATOLOGY PTT 27.1 s 22.9 - 35.8 03/14/2015 [facility] HEMATOLOGY INR 0.99 0.85 - 1.17 03/14/2015 [facility] HEMATOLOGY PT 13.4 s 12.0 - 14.7 03/14/2015 [facility] HEMATOLOGY WBC 7.7 K/CMM 3.7 - 10.4 03/14/2015 [facility] HEMATOLOGY Hgb 13.8 g/dL 14.0 - 18.0 03/14/2015 [facility] HEMATOLOGY RBC 4.48 M/CMM 4.70 - 6.10 03/14/2015 [facility] HEMATOLOGY MCV 95.3 fL 80.0 - 94.0 03/14/2015 [facility] HEMATOLOGY Hct 42.7 % 42.0 - 54.0 03/14/2015 [facility] HEMATOLOGY RDW 14.5 % 11.5 - 14.5 03/14/2015 [facility] HEMATOLOGY MCHC 32.3 g/dL 32.0 - 36.0 03/14/2015 [facility] HEMATOLOGY Platelet 146 K/CMM 133 - 450 03/14/2015 [facility] MCH 30.8 pg 27.0 - 31.0 03/14/2015 [facility] HEMATOLOGY MPV 8.1 fL 7.4 - 10.4 03/14/2015 [facility] Vital Signs Vital Sign Value Date Comments Source Systolic (mm Hg) 134 10/31/2018 [facility] Diastolic (mm Hg) 68 10/31/2018 [facility] Respitory Rate 16 10/31/2018 [facility] Respitory Rate 21 10/31/2018 [facility] Systolic (mm Hg) 137 10/31/2018 [facility] Diastolic (mm Hg) 61 10/31/2018 [facility] Systolic (mm Hg) 126 10/31/2018 [facility] Diastolic (mm Hg) 68 10/31/2018 [facility] Respitory Rate 16 10/31/2018 [facility] Temperature Oral (F) 97.4 F 10/31/2018 [facility] Temperature Oral (F) 97.6 F 10/31/2018 [facility] BMI Calculated 36.97 10/31/2018 [facility] Weight 123.636 10/31/2018 [facility] Height 182.88 cm 10/31/2018 [facility] BMI Calculated 29.75 10/17/2018 [facility] 102.273 [facility] Systolic (mm Hg) 97 10/17/2018 [facility] Diastolic (mm Hg) 66 10/17/2018 [facility] Heart Rate 72 10/17/2018 [facility] Temperature Oral (F) 98.1 F 10/17/2018 [facility] Height 185.42 cm 10/17/2018 [facility] Systolic (mm Hg) 141 08/29/2018 [facility] Diastolic (mm Hg) 61 08/29/2018 [facility] Systolic (mm Hg) 115 08/29/2018 [facility] Diastolic (mm Hg) 60 08/29/2018 [facility] Systolic (mm Hg) 120 08/29/2018 [facility] Diastolic (mm Hg) 61 08/29/2018 [facility] Respitory Rate 20 08/29/2018 [facility] Temperature Oral (F) 97.5 F 08/29/2018 [facility] BMI Calculated 30.58 08/29/2018 [facility] Height 182.88 cm 08/29/2018 [facility] Weight 102.273 08/29/2018 [facility] Systolic (mm Hg) 154 03/21/2015 [facility] Diastolic (mm Hg) 59 03/21/2015 [facility] Systolic (mm Hg) 148 03/21/2015 [facility] Diastolic (mm Hg) 94 03/21/2015 [facility] Respitory Rate 12 03/21/2015 [facility] Systolic (mm Hg) 167 03/21/2015 [facility] Diastolic (mm Hg) 79 03/21/2015 [facility] Respitory Rate 18 03/21/2015 [facility] Respitory Rate 12 03/21/2015 [facility] Heart Rate 55 03/21/2015 [facility] Height 182.88 cm 03/14/2015 [facility] Weight 123.75 03/14/2015 [facility] BMI Calculated 37 03/14/2015 [facility] Heart Rate 59 03/14/2015 [facility] Temperature Oral (F) 97.9 F 03/14/2015 [facility] Encounters Location Location Details Encounter Type Encounter Number Reason For Visit Attending Provider ADM Date DC Date Status Source [facility] OBS Day Surgery [id number] Zhao Goodwin 03/21/2015 03/21/2015 [facility] Bedded Outpatient [id number] Shanita Yang 08/29/2018 08/29/2018 [facility] Phone Message [id number] 09/21/2018 09/23/2018 [facility] [place] [id number] Robin Revelesh 10/17/2018 Active [facility] [id number] Robin Kvng 10/17/2018 10/18/2018 [facility] Outpatient [id number] Robin Kvng 10/28/2018 10/29/2018 [facility] Bedded Outpatient [id number] Shanita Trey 10/31/2018 10/31/2018 [facility] Outpatient [id number] Robin [facility] 11/07/2018 Active [facility] Procedures Procedure Code Date Perfomer Comments Source Peripheral angiography [id number] 10/31/2018 [facility] [id number] [facility] Enteral tube feeding<sup>1</sup> [id number] Insertion 2006 [facility] Hemorrhoidectomy<sup>2</sup> [id number] 20 years ago [facility] Laminectomy [id number] [facility] Ligament repair<sup>3</sup> [id number] 2009 [facility] Operation<sup>4</sup> [id number] Removed right jaw due to oral cancer [facility] Operation<sup>5</sup> [id number] Dental Implant Surgery 2007 [facility] Colonoscopy [id number] [facility] Enteral tube feeding<sup>1</sup> [id number] Insertion 2006 [facility] Hemorrhoidectomy<sup>2</sup> 70671231 20 years ago [facility] [id number] [facility] Ligament repair<sup>3</sup> [id number] 2009 [facility] Operation<sup>4</sup> [id number] Removed right jaw due to [facility]<sup>5</sup> [id number] Dental Implant Surgery 2007 [facility]
--- OUTSIDE RECORDS SUMMARY | 2018-11-07 13:29 | XMS REPORT | Summary of Care ---
Author Author [facility] Organization [facility] Address Unknown Phone Unavailable Encounter [facility](FIN) [id number] Date(s): 09/21/18 - 09/22/18 [facility] [address] [place] [address]- [phone] Vital Signs No data available for this section Problem List Condition Effective Dates Status Health Status Informant Anxiety(Confirmed) Active History of Oral Resolved Cancer(Confirmed) Chronic pain Active syndrome(Confirmed) Cirrhosis of Active liver(Confirmed) HUGHES (hard of Active hearing)(Confirmed) Hypothyroidism(Confi Active rmed) [...] Operation5 Completed 1Insertion 2006 220 years ago 50151 4Removed right jaw due to oral cancer 5Dental Implant Surgery 2007 Social History Social History Type Response Alcohol Past, Previous treatment: None. Alcohol use interferes with work or home: No. Smoking Status Former smoker; Type: Cigarettes; Exposure to Tobacco Smoke None; Cigarette Smoking Last 365 Days No; Reg Smoking Cessation Counseling No; Number of years: 30; entered on: 08/29/18 Assessment and Plan No data available for this section
[2018-11-07 13:53] VITALS: BP 155/79
== END 2018-11-07 13:58 | disposition home or self-care (01) ==
LOC: FSED 13:23
DX: H11.31 Conjunctival hemorrhage, right eye (principal); Z79.82 Long term (current) use of aspirin; Z79.52 Long term (current) use of systemic steroids
CPT/HCPCS: 99283

== ENCOUNTER 2020-06-07 06:53 | Emergency (ER) | payer OTHER, MEDICARE ==
[~2020-06-07] VITALS: Ht 185.4 cm; Wt 101.8 kg
[2020-06-07] MEDS ORDERED: PLAVIX75 MG PO (08:04)
[2020-06-07] MEDS ORDERED: LIPITOR20 MG PO (08:04)
[2020-06-07] MEDS ORDERED: MEDROL4 MG PO (08:04)
== END 2020-06-07 08:10 | disposition home or self-care (01) ==
LOC: FSED 07:00
DX: S92.531A Displaced fracture of distal phalanx of right lesser toe(s), initial encounter for closed fracture (principal); S91.114A Laceration without foreign body of right lesser toe(s) without damage to nail, initial encounter; W20.8XXA Other cause of strike by thrown, projected or falling object, initial encounter; Y92.008 Other place in unspecified non-institutional (private) residence as the place of occurrence of the external cause; I10 Essential (primary) hypertension; J44.9 Chronic obstructive pulmonary disease, unspecified; I50.9 Heart failure, unspecified; I25.10 Atherosclerotic heart disease of native coronary artery without angina pectoris; E78.5 Hyperlipidemia, unspecified; M06.9 Rheumatoid arthritis, unspecified; Z85.828 Personal history of other malignant neoplasm of skin; Z85.818 Personal history of malignant neoplasm of other sites of lip, oral cavity, and pharynx
CPT/HCPCS: 99283

== ENCOUNTER → 2020-11-05 | Day surgery (SDC) | payer OTHER, MEDICARE ==
[2020-10-31 08:30] LABS: BASOPHILS # (AUTO) 0.1 (0.0-0.1); BASOPHILS % 1.3 % (0.0-1.0); EOSINOPHILS # (AUTO) 0.2 (0.0-0.4); EOSINOPHILS % 3.9 % (0.0-6.0); HEMATOCRIT 45.7 % (38.2-49.6); HEMOGLOBIN 15.6 g/dL (14.0-18.0); LYMPHOCYTES # (AUTO) 1.4 (1.0-3.2); LYMPHOCYTES % 25.6 % (18.0-39.1); MEAN CORPUSCULAR HEMOGLOBIN 33.1 pg (28-32); MEAN CORPUSCULAR HGB CONC 34.1 g/dL (31-35); MONOCYTES # (AUTO) 0.8 (0.2-0.8); MONOCYTES % 14.2 % (4.4-11.3); NEUTROPHILS % 54.4 % (38.7-80.0); PLATELET COUNT 184 x10e3/uL (140-360); RED BLOOD COUNT 4.71 x10e6/uL (4.3-5.7); RED CELL DISTRIBUTION WIDTH 13.5 % (11.7-14.4)
[~2020-11-05] MED LIST changes: +ACTEMRA80 MG/4 ML IM; +ALLEGRA ALLERGY60 MG PO; +DEXAMETHASONE SOD PHOS INJ 4 MG/ML VIAL ONE; +FENTANYL CITRATE/PF 100MCG/2 ML INJ ONE; +FISH OIL 1,2001 EAC8 PO; +FLONASE ALLERG9.9 ML INH; +GLYCOPYRROLATE INJ 0.2 MG/ML VIAL ONE; +LIDOCAINE HCL 2% LOCAL INJ 5 ML SDV VIAL INJ ONE; +LIPITOR20 MG PO; +MEDROL4 MG PO; +MIDAZOLAM HCL 2 MG/2 ML VIAL ONE; +NEOSTIGMINE 1 MG/ML 10ML VIAL ONE; +NEURONTIN100 MG PO; +NITROGLYCERIN0.4 MG SL; +ONDANSETRON HCL INJ 2MG/ML 2ML 2 MG/ML VIAL ONE; +OXYMETAZOLINE HCL 0.05% NAS 1 SPRAY BTL ONE; +PLAVIX75 MG PO; +POVIDONE IODINE 0.05% 0.05 % ML PO ONE; +PREVACID15 MG PO; +PROPOFOL IV EMULSION 10 MG/ML 20 ML VIAL ONE; +ROCURONIUM BROMIDE 10 MG/ML 5ML VIAL IV ONE; +SEVOFLURANE INHAL SOLN 250 ML PEN BTL ONE; +VITAMIN D3 PO; +ZINC PO
[2020-11-05 08:35] VITALS: BP 115/84
== END | disposition home or self-care (01) ==
LOC: OR 05:34
PROVIDERS: ATTEND Otolaryngology
DX: D10.5 Benign neoplasm of other parts of oropharynx (principal); Z85.818 Personal history of malignant neoplasm of other sites of lip, oral cavity, and pharynx; M53.9 Dorsopathy, unspecified; K74.60 Unspecified cirrhosis of liver; K21.9 Gastro-esophageal reflux disease without esophagitis; E03.9 Hypothyroidism, unspecified; I45.10 Unspecified right bundle-branch block; N40.0 Benign prostatic hyperplasia without lower urinary tract symptoms; I69.898 Other sequelae of other cerebrovascular disease; R53.1 Weakness; M06.9 Rheumatoid arthritis, unspecified; I25.10 Atherosclerotic heart disease of native coronary artery without angina pectoris; I11.0 Hypertensive heart disease with heart failure; I50.9 Heart failure, unspecified; H91.91 Unspecified hearing loss, right ear; K44.9 Diaphragmatic hernia without obstruction or gangrene; F41.9 Anxiety disorder, unspecified; Z88.8 Allergy status to other drugs, medicaments and biological substances; Z01.810 Encounter for preprocedural cardiovascular examination; Z01.812 Encounter for preprocedural laboratory examination; Z01.818 Encounter for other preprocedural examination; Z20.822 Contact with and (suspected) exposure to COVID-19; Z79.02 Long term (current) use of antithrombotics/antiplatelets; Z79.82 Long term (current) use of aspirin; Z98.61 Coronary angioplasty status; Z92.3 Personal history of irradiation; Z92.21 Personal history of antineoplastic chemotherapy; Z87.891 Personal history of nicotine dependence
CPT/HCPCS: 31540; 36415; 71046; 85025; 88305; 88342; 93005; J1100; J2001; J2250; J2405; J2704; J2710; J3010; U0002

== ENCOUNTER 2021-05-07 17:07 | Emergency (ER) | payer OTHER, MEDICARE ==
[~2021-05-07] VITALS: Ht 185.4 cm; Wt 107.1 kg
[~2021-05-07 17:07] MED LIST changes: -DEXAMETHASONE SOD PHOS INJ 4 MG/ML VIAL ONE; -FENTANYL CITRATE/PF 100MCG/2 ML INJ ONE; -GLYCOPYRROLATE INJ 0.2 MG/ML VIAL ONE; -LIDOCAINE HCL 2% LOCAL INJ 5 ML SDV VIAL INJ ONE; -MIDAZOLAM HCL 2 MG/2 ML VIAL ONE; -NEOSTIGMINE 1 MG/ML 10ML VIAL ONE; -ONDANSETRON HCL INJ 2MG/ML 2ML 2 MG/ML VIAL ONE; -OXYMETAZOLINE HCL 0.05% NAS 1 SPRAY BTL ONE; -POVIDONE IODINE 0.05% 0.05 % ML PO ONE; -PROPOFOL IV EMULSION 10 MG/ML 20 ML VIAL ONE; -ROCURONIUM BROMIDE 10 MG/ML 5ML VIAL IV ONE; -SEVOFLURANE INHAL SOLN 250 ML PEN BTL ONE
[2021-05-07] MEDS ORDERED: AMPICILLIN SOD/SULBACTAM 3GM 100 ML IV STA (17:19)
[2021-05-07] MEDS ORDERED: AMPICILLIN SOD IV ONE (17:30)
[2021-05-07] MEDS ORDERED: SODIUM CHLORIDE 0.9% IV ONE (17:30)
[2021-05-07] MEDS ORDERED: SULBACTAM IV ONE (17:30)
[2021-05-07] MEDS ORDERED: KETOROLAC TROMETHAMINE 30 MG/ML VIAL IV STA (17:33)
[2021-05-07] MEDS ORDERED: AMPICILLIN SOD/SULBACTAM 3 GM VIAL ONE (17:38)
[2021-05-07] MEDS ORDERED: SODIUM CHLORIDE 0.9% 100 ML ONE (17:38)
[2021-05-07] MEDS ORDERED: KETOROLAC TROMETHAMINE 30 MG/ML VIAL ONE (17:45)
[2021-05-07] MEDS ORDERED: ACETAMINOPHEN-1 EAC4 PO (17:56)
[2021-05-07] MEDS ORDERED: AUGMENTIN 875-1 EACH PO (17:56)
[2021-05-07] MEDS ORDERED: PLAQUENIL200 MG PO (18:02)
[2021-05-07] MEDS ORDERED: LISINOPRIL10 MG PO (18:02)
[2021-05-07] MEDS ORDERED: LASIX40 MG PO (18:02)
== END 2021-05-07 18:25 | disposition home or self-care (01) ==
LOC: FSED 17:17
DX: L03.113 Cellulitis of right upper limb (principal); W22.8XXA Striking against or struck by other objects, initial encounter; I10 Essential (primary) hypertension; E03.9 Hypothyroidism, unspecified; E78.5 Hyperlipidemia, unspecified; M06.9 Rheumatoid arthritis, unspecified; Z85.89 Personal history of malignant neoplasm of other organs and systems
CPT/HCPCS: 80048; 85025; 96374; 99283; J0295; J1885; J7050

== ENCOUNTER → 2021-07-16 | Outpatient (CLI) | payer OTHER, MEDICARE ==
[~2021-07-16] MED LIST changes: +ACETAMINOPHEN-1 EAC4 PO; +AUGMENTIN 875-1 EACH PO; +LASIX40 MG PO
== END ==
LOC: US 07:43
PROVIDERS: ATTEND Student in an Organized Health Care Education/Training Program
DX: N28.1 Cyst of kidney, acquired (principal)
CPT/HCPCS: 76770